=== PATIENT | male | born 1925 | race Caucasian/White ===

== ENCOUNTER 2016-06-26 06:55 | Inpatient (IN) | payer MEDICARE, OTHER ==
--- NOTE | 2016-06-26 08:01 | ED PDOC ---
HPI: SOB/CHF/COPD Time Seen by Provider: 06/26/16 07:10 Chief Complaint (Nursing): Shortness Of Breath Chief Complaint (Provider): shortness of breath, nausea History Per: Patient, Family, Media Sales Representative History/Exam Limitations: no limitations Onset/Duration Of Symptoms: Days (1) Current Symptoms Are (Timing): Intermittent Episodes Exacerbating Factor(s): Laying Flat, Coughing Severity: Moderate Associated Symptoms: Productive Cough, Dizziness, Light-headedness. denies: Heart Racing, Leg/Calf Pain, Ankle/Leg Swelling Similar Symptoms Previously: + Additional Complaint(s): 89yo male with multiple medical problems presents w son c/o SOB, nausea and generalized weakness/dizziness since yesterday. Per son patient requested to come to hospital for "not feeling well". Denies syncope, chest pain, fever, abdominal pain or bloody stools. Does state stools are "dark". States adherence to medications including "water pill", but hasnt taken insulin in 3 days because "theyre changing medication". Accuchecks normally 250 in morning per son, today 194 in ED. Past Medical History Reviewed: Historical Data, Nursing Documentation, Vital Signs Vital Signs: Last Vital Signs Temp 97.4 F L 06/27/16 12:43 Pulse 89 06/27/16 14:33 Resp 20 06/27/16 12:43 BP 103/60 06/27/16 13:29 Pulse Ox 93 L 06/27/16 14:33 - Medical History PMH: Benign Prostatic Hyperplasia, CAD, Cardia Arrhythmia (w/ defibrillator), CHF, Diabetes, HTN, Hypercholesterolemia, Hyperlipidemia, Hypothyroidism, Peripheral Edema, Chronic Kidney Disease Denies: HIV - Surgical History Surgical History: CABG - Family History Family History: States: Unknown Family Hx - Living Arrangements Living Arrangements: With Family - Social History Current smoker - smoking cessation education provided: No Alcohol: None - Home Medications Home Medications: Ambulatory Orders Medication Instructions Recorded Alfuzosin HCl [Uroxatral] 10 mg PO DAILY 06/26/16 Allopurinol [Zyloprim] 100 mg PO DAILY 06/26/16 Aspirin [Ecotrin] 81 mg PO DAILY 06/26/16 Dutasteride [Avodart] 0.5 mg PO DAILY 06/26/16 Ergocalciferol (Vitamin D2) 50,000 unit PO SAT 06/26/16 [Vitamin D2] Insulin Detemir [Levemir] 12 unit SC HS 06/26/16 Levothyroxine [Synthroid] 88 mcg PO DAILY 06/26/16 Metoprolol Succinate [Toprol XL] 100 mg PO DAILY 06/26/16 Multivitamin/Iron/Folic Acid 1 tab PO DAILY 06/26/16 [Centrum Complete Multivit Tab] Ranolazine [Ranexa] 500 mg PO Q12H 06/26/16 Repaglinide [Prandin] 4 mg PO TID 06/26/16 Rosuvastatin Calcium [Crestor] 20 mg PO DAILY 06/26/16 Sacubitril/Valsartan [Entresto 97 1 tab PO BID 06/26/16 mg-103 mg Tablet] Sevelamer Carbonate [Renvela] 800 mg PO ACLD 06/26/16 Sitagliptin Phos/Metformin HCl 1 tab PO BID 06/26/16 [Janumet 50-1,000 mg Tablet] Torsemide [Demadex] 10 mg PO DAILY 06/26/16 - Allergies Allergies/Adverse Reactions: Allergies Allergy/AdvReac Type Severity Reaction Status Date / Time No Known Allergies Allergy Unverified 03/14/14 18:48 Review of Systems ROS Statement: Except As Marked, All Systems Reviewed And Found Negative Constitutional: Positive for: Weakness, Malaise. Negative for: Fever, Chills Eyes: Negative for: Pain ENT: Negative for: Ear Discharge, Throat Pain, Throat Swelling Cardiovascular: Positive for: Orthopnea, Light Headedness. Negative for: Chest Pain, Palpitations Respiratory: Positive for: Cough, Shortness of Breath, SOB with Exertion. Negative for: Hemoptysis, Sputum, Wheezing Gastrointestinal: Positive for: Nausea. Negative for: Vomiting, Abdominal Pain Genitourinary Male: Negative for: Dysuria, Frequency, Scrotal Pain Musculoskeletal: Negative for: Neck Pain, Arm Pain, Back Pain, Leg Pain Skin: Negative for: Rash, Lesions, Jaundice Neurological: Positive for: Dizziness. Negative for: Weakness, Numbness, Confusion, Altered Mental Status, Headache Psych: Negative for: Anxiety Physical Exam - Reviewed Nursing Documentation Reviewed: Yes Vital Signs Reviewed: Yes - Physical Exam Appears: Positive for: Well, Non-toxic, No Acute Distress Head Exam: Positive for: ATRAUMATIC, NORMAL INSPECTION, NORMOCEPHALIC Skin: Positive for: Warm, Pallor (?). Negative for: Diaphoresis Eye Exam: Positive for: EOMI, Normal appearance, PERRL ENT: Positive for: Normal ENT Inspection Neck: Positive for: Normal, Painless ROM Cardiovascular/Chest: Positive for: Regular Rate, Rhythm, Other (midline scar healed) Respiratory: Positive for: Decreased Breath Sounds. Negative for: Wheezing, Respiratory Distress Pulses-Radial (L): 2+ Pulses-Radial (R): 2+ Gastrointestinal/Abdominal: Positive for: Bowel Sounds, Soft. Negative for: Tenderness Back: Positive for: Normal Inspection Extremity: Positive for: Normal ROM. Negative for: Pedal Edema, Swelling Neurologic/Psych: Positive for: Alert, controlled area checker II-XII, Oriented. Negative for: Motor/Sensory Deficits, Facial Droop - Laboratory Results Result Diagrams: 06/27/16 05:35 06/27/16 05:35 - ECG ECG: Positive for: Interpreted By Me ECG Rhythm: Positive for: Sinus Rhythm, ST/T Changes (lateral), Nonspecific Changes O2 Sat by Pulse Oximetry: 100 Pulse Ox Interpretation: Normal Medical Decision Making Medical Decision Making: bloodwork reveals elevated BNP and acute kidney injury w mild hyperkalemia since last available labs. 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 Lasix and kayexalate initiated. Pt admitted to Dr Blackwell as PMD [facility]. Dr Maryjane Cooper cardiology to consult. Disposition - Clinical Impression Clinical Impression: CHF exacerbation, Hyperkalemia, Acute kidney injury - Patient ED Disposition Is Patient to be Admitted: Yes Counseled Patient/Family Regarding: Studies Performed, Diagnosis - Disposition Disposition Time: 09:00 Condition: FAIR - Pt Status Changed To: Hospital Disposition Of: Inpatient - Admit Certification Admit to Inpatient:: After my assessment, the patient will require hospitalization for at least two midnights. This is because of the severity of symptoms shown, intensity of services needed, and/or the medical risk in this patient being treated as an outpatient. - POA Present On Arrival: Poor Glycemic Control
[2016-06-26 08:12] LABS: BILIRUBIN,TOTAL 0.6 mg/dl (0.2-1.3); CALCIUM 9.3 mg/dL (8.4-10.2); POTASSIUM 5.5 MMOL/L (3.6-5.0)
[2016-06-26 08:17] LABS: BASO % 0.2 % (0.0-2.0); EOS % 0.3 % (0.0-4.0); HEMATOCRIT 32.9 % (35.0-51.0); LYMPH # 1.1 K/uL (1.0-4.3); LYMPH % 9.8 % (20.0-40.0); MEAN CELL VOLUME 93.9 fl (80.0-94.0); MEAN CORPUSCULAR HEMOGLOBIN 30.5 pg (27.0-31.0); MEAN CORPUSCULAR HGB CONC 32.4 g/dL (33.0-37.0); MEAN PLATELET VOLUME 8.7 fl (7.2-11.7); MONO # 0.8 K/uL (0.0-0.8); MONO % 7.4 % (0.0-10.0); NEUT # 9.3 K/uL (1.8-7.0); NEUT % 82.3 % (50.0-75.0); NRBC % 0.1 % (0.0-0.0); PLATELET COUNT 200 K/uL (130-400); RED CELL DISTRIBUTION WIDTH 13.6 % (11.5-14.5); WHITE BLOOD COUNT 11.4 K/uL (4.8-10.8)
[2016-06-26 08:24] LABS: TROPONIN I 0.043 ng/mL (0.00-0.120)
[2016-06-26] MEDS ORDERED: Sod Polystyrene Sulf 15 gm/60 ml Oral Susp PO ONE (08:53)
[2016-06-26 09:27] LABS: NEUTROPHIL 82 % (42-75); TOTAL CELLS COUNTED 100
[2016-06-26] MEDS ORDERED: Sod Polystyrene Sulf 15 gm/60 ml Oral Susp ONE (10:16)
[2016-06-26 10:19] LABS: RBC URINE 1 /hpf (0-3); URINE BILIRUBIN NEGATIVE (NEGATIVE); URINE BLOOD NEGATIVE (NEGATIVE); URINE COLOR YELLOW (YELLOW); URINE GLUCOSE (UA) NEG (Normal); URINE KETONE NEGATIVE (NEGATIVE); URINE LEUKOCYTE ESTERASE NEG Leu/uL (Negative); URINE PROTEIN NEGATIVE (NEGATIVE); URINE UROBILINOGEN 0.2-1.0 mg/dL (0.2-1.0); WBC URINE < 1 /hpf (0-5)
--- NOTE | 2016-06-26 10:41 | RAD ---
HISTORY: SOB COMPARISON: Comparison is made to 03/14/2014 FINDINGS: LUNGS: Scattered reticular opacities are seen in the lungs. Enlargement of the right hilum is again noted. The right lung is smaller than the left. PLEURA: No significant pleural effusion identified, no pneumothorax apparent. CARDIOVASCULAR: Normal. OSSEOUS STRUCTURES: No significant abnormalities. VISUALIZED UPPER ABDOMEN: Normal. OTHER FINDINGS: The sided pacemaker is seen in place. IMPRESSION: Scattered small opacities in the lungs more prominent compared to the previous exam. Right hilum enlargement versus perihilar lesion again noted and appears larger compared to the previous exam. If clinically warranted further assessment by CT may be obtained. Otherwise no significant change.
[2016-06-26] MEDS ORDERED: Sevelamer Carb 0.8 gm/Packet PO SCH (11:15)
[2016-06-26] MEDS: Levothyroxine 88 MCG TAB PO SCH (13:28)
[2016-06-26] MEDS: Multivitamin With Minerals Tab PO SCH (13:29)
[2016-06-26] MEDS: Metoprolol Succinate 100 mg XL Tab PO SCH (13:30)
[2016-06-26] MEDS: VALSARTAN PO SCH (16:50)
[2016-06-26] MEDS: SACUBITRIL PO SCH (16:50)
--- NOTE | 2016-06-26 19:32 | CP.PCM.CON ---
History of Present Illness - History of Present Illness History of Present Illness: I was asked to see patient by DR. Blackwell and Felix Delaney APN Patient is a 89 year old male with PMH HTN, hypercholesterolemia, CAD s/p CABG, ischemic cardiomyopathy s/p AICD who presents with dyspnea. History was obtained from the patien's son and the patient. He has developed progressive dyspnea and orthopnea for the last few days. The patietn was brought in and found to be in acute on chronic systolic dysfunction, He has been given diuretic tehrapy. The patient has been noncompliant with lasix. Review of Systems - Constitutional Constitutional: absent: As Per HPI, Anorexia, Chills, Daytime Sleepiness, Excessive Sweating, Fatigue, Fever, Frequent Falls, Headache, Increased Appetite , Lethargy, Malaise, Night Sweats, Snoring, Sleep Apnea, Weight Gain, Weight Loss, Weakness, Other - EENT Eyes: absent: As Per HPI, Blind Spots, Blurred Vision, Change in Vision, Decreased Night Vision, Diplopia, Discharge, Dry Eye, Exophthalmos, Floaters, Irritation, Itchy Eyes, Loss of Peripheral Vision, Pain, Photophobia, Requires Corrective Lenses, Sees Flashes, Spots in Vision, Tunnel Vision, Other Visual Disturbances, Loss of Vision, Other Ears: absent: As Per HPI, Decreased Hearing, Ear Discharge, Ear Pain, Tinnitus, Abnormal Hearing, Disequilibrium, Dizziness, Other Nose/Mouth/Throat: absent: As Per HPI, Epistaxis, Nasal Congestion, Nasal Discharge, Nasal Obstruction, Nasal Trauma, Nose Pain, Post Nasal Drip, Sinus Pain, Sinus Pressure, Bleeding Gums, Change in Voice, Dental Pain, Dry Mouth, Dysphagia, Halitosis, Hoarsness, Lip Swelling, Mouth Lesions, Mouth Pain, Odynophagia, Sore Throat, Throat Swelling, Tongue Swelling, Facial Pain, Neck Pain, Neck Mass, Other - Cardiovascular Cardiovascular: Dyspnea, Pedal Edema - Respiratory Respiratory: Dyspnea - Gastrointestinal Gastrointestinal: absent: As Per HPI, Abdominal Pain, Belching, Bloating, Change in Bowel Habits, Change in Stool Character, Coffee Ground Emesis, Constipation, Cramping, Diarrhea, Dyspepsia, Dysphagia, Early Satiety, Excessive Flatus, Fecal Incontinence, Heartburn, Hematemesis, Hematochezia, Loose Stools, Melena, Nausea, Odynophagia, Temesmus, Vomiting, Other - Genitourinary Genitourinary: absent: As Per HPI, Change in Urinary Stream, Difficulty Urinating, Dysuria, Flank Pain, Hematuria, Pyuria, Nocturia, Urinary Incontinence, Urinary Frequency, Urinary Hesitance, Urinary Urgency, Voiding Freq/Small Amts, Freq UTI, Hx Renal/Bladder Calculi, Hx /Renal Surgery, Bladder Distension, Other - Musculoskeletal Musculoskeletal: absent: As Per HPI, Abnormal Gait, Arthralgias, Atrophy, Back Pain, Deformity, Joint Swelling, Limited Range of Motion, Loss of Height, Muscle Cramps, Muscle Weakness, Myalgias, Neck Pain, Numbness, Radiating Pain into Limb, Stiffness, Tingling, Other - Integumentary Integumentary: absent: As Per HPI, Acne, Alopecia, Bleeding Lesions, Change in Hair, Change in Nails, Change in Pigmentation, Changing Lesions, Dry Skin, Erythema, Furuncle, Hirsutism, Lesions, New Lesions, Non-Healing Lesions, Photosensitivity, Pruritus, Rash, Skin Pain, Skin Ulcer, Sores, Striae, Swelling , Unusual Bruising, Wounds, Jaundice, Other - Neurological Neurological: absent: As Per HPI, Abnormal Gait, Abnormal Hearing, Abnormal Movements, Abnormal Speech, Behavioral Changes, Burning Sensations, Confusion, Convulsions, Disequilibrium, Dizziness, Numbness, Focal Weakness, Frequent Falls , Headaches, Lack of Coordination, Loss of Vision, Memory Loss, Paresthesias, Radicular Pain, Restless Legs, Sensory Deficit, Syncope, Tingling, Tremor, Vertigo, Weakness, Other Visual Disturbances, Other - Psychiatric Psychiatric: absent: As Per HPI, Abnormal Sleep Pattern, Anhedonia, Anxiety, Auditory Hallucinations, Behavioral Changes, Change in Appetite, Change in Libido, Confusion, Depression, Difficulty Concentrating, Hallucinations, Homicidal Ideation, Hopelessness, Irritability, Memory Loss, Mood Swings, Panic Attacks, Paranoia, Suicidal Ideation, Visual Hallucinations, Tactile Hallucinations, Other - Endocrine Endocrine: absent: As Per HPI, Change in Body Appearance, Change in Libido, Cold Intolorance, Deepening of Voice, Excessive Sweating, Fatigue, Flushing, Heat Intolorance, Increase in Ring/Shoe/Hat Size, Palpitations, Polydipsia, Polyphagia, Polyuria, Other - Hematologic/Lymphatic Hematologic: absent: As Per HPI, Easy Bleeding, Easy Bruising, Lymphadenopathy, Other Past Patient History - Infectious Disease Hx of Infectious Diseases: None - Tetanus Immunizations Tetanus Immunization: Unknown - Past Medical History & Family History Past Medical History?: Yes - Past Social History Smoking Status: Never Smoked - CARDIAC Hx Cardiac Disorders: Yes (s/p CABG, defibrillator in, HTN high cholesterol) Hx Cardia Arrhythmia: Yes Hx Congestive Heart Failure: Yes Hx Hypertension: Yes Hx Hypotension: Yes - PULMONARY Hx Respiratory Disorders: No Hx Asthma: No Hx Bronchitis: No Hx Chronic Obstructive Pulmonary Disease (COPD): No Hx Emphysema: No Hx Lung Cancer: No Hx Pneumonia: Yes Hx Pulmonary Edema: No Hx Pulmonary Embolism: No Hx Respiratory Aspiration: No Hx Respiratory Tract Infection: No Hx Sleep Apnea: No Hx Tuberculosis: No - NEUROLOGICAL Hx Neurological Disorder: No - HEENT Hx HEENT Problems: No - RENAL Hx Chronic Kidney Disease: Yes - ENDOCRINE/METABOLIC Hx Endocrine Disorders: Yes (DM 2) - HEMATOLOGICAL/ONCOLOGICAL Hx Human Immunodeficiency Virus (HIV): No - MUSCULOSKELETAL/RHEUMATOLOGICAL Hx Falls: Yes - GASTROINTESTINAL Hx Gastrointestinal Disorders: No - GENITOURINARY/GYNECOLOGICAL Hx Genitourinary Disorders: Yes (Prostatic hyperplasia) - PSYCHIATRIC Hx Substance Use: No - SURGICAL HISTORY Hx Coronary Artery Bypass Graft: Yes - ANESTHESIA Hx Anesthesia: Yes Hx Anesthesia Reactions: No Meds Allergies/Adverse Reactions: Allergies Allergy/AdvReac Type Severity Reaction Status Date / Time No Known Allergies Allergy Unverified 03/14/14 18:48 - Medications Medications: Current Medications Allopurinol (Zyloprim) 100 mg PO DAILY COUNTS INCLUDE 234 BEDS AT THE [facility] Last Admin: 06/26/16 13:31 Dose: 100 mg Aspirin (Ecotrin) 81 mg PO DAILY COUNTS INCLUDE 234 BEDS AT THE [facility] Last Admin: 06/26/16 13:29 Dose: 81 mg Atorvastatin Calcium (Lipitor) 40 mg PO DAILY COUNTS INCLUDE 234 BEDS AT THE [facility] Last Admin: 06/26/16 13:30 Dose: 40 mg Ergocalciferol (Drisdol 50,000 Intl Units Cap) 1 cap PO SAT COUNTS INCLUDE 234 BEDS AT THE [facility] Home Med (Alfuzosin Hcl [Uroxatral]) 10 mg PO DAILY COUNTS INCLUDE 234 BEDS AT THE [facility] Last Admin: 06/26/16 16:56 Dose: 10 mg Home Med (Dutasteride [Avodart]) 0.5 mg PO DAILY COUNTS INCLUDE 234 BEDS AT THE [facility] Last Admin: 06/26/16 16:47 Dose: 0.5 mg Home Med (Ranolazine [Ranexa]) 500 mg PO Q12 COUNTS INCLUDE 234 BEDS AT THE [facility] Last Admin: 06/26/16 16:49 Dose: 500 mg Home Med (Sacubitril/Valsartan [Entresto 97 Mg-103 Mg Tablet]) 1 tab PO BID COUNTS INCLUDE 234 BEDS AT THE [facility] Last Admin: 06/26/16 16:50 Dose: 1 tab Insulin Detemir (Levemir) 12 units SC [facility] Levothyroxine Sodium (Synthroid) 88 mcg PO DAILY@0630 COUNTS INCLUDE 234 BEDS AT THE [facility] Last Admin: 06/26/16 13:28 Dose: 88 mcg Metformin HCl (Glucophage) 1,000 mg PO BID COUNTS INCLUDE 234 BEDS AT THE [facility] Last Admin: 06/26/16 16:48 Dose: 1,000 mg Metoprolol Succinate (Toprol Xl) 100 mg PO DAILY COUNTS INCLUDE 234 BEDS AT THE [facility] Last Admin: 06/26/16 13:30 Dose: 100 mg Multivitamins/Minerals (Therapeutic-M Tab) 1 tab PO DAILY COUNTS INCLUDE 234 BEDS AT THE [facility] Last Admin: 06/26/16 13:29 Dose: 1 tab Repaglinide (Prandin) 4 mg PO TID COUNTS INCLUDE 234 BEDS AT THE [facility] Last Admin: 06/26/16 16:51 Dose: 4 mg Sevelamer Carbonate (Renvela) 0.8 gm PO ACLD COUNTS INCLUDE 234 BEDS AT THE [facility] Sitagliptin Phosphate (Januvia) 50 mg PO BID COUNTS INCLUDE 234 BEDS AT THE [facility] Last Admin: 06/26/16 16:49 Dose: 50 mg Torsemide (Demadex) 10 mg PO DAILY COUNTS INCLUDE 234 BEDS AT THE [facility] Last Admin: 06/26/16 13:29 Dose: 10 mg Physical Exam - Constitutional Appears: Non-toxic - Head Exam Head Exam: NORMAL INSPECTION - Eye Exam Eye Exam: Normal appearance - ENT Exam ENT Exam: Mucous Membranes Moist - Neck Exam Neck exam: Positive for: Full Rom - Respiratory Exam Respiratory Exam: Decreased Breath Sounds - Cardiovascular Exam Cardiovascular Exam: REGULAR RHYTHM - GI/Abdominal Exam GI & Abdominal Exam: Normal Bowel Sounds - Rectal Exam Rectal Exam: Deferred - Extremities Exam Extremities exam: Positive for: pedal edema - Back Exam Back exam: NORMAL INSPECTION - Neurological Exam Neurological exam: Alert, Oriented x3 - Psychiatric Exam Psychiatric exam: Normal Affect - Skin Skin Exam: Normal Color Results - Vital Signs Recent Vital Signs: Last Vital Signs Temp 97.6 F 06/26/16 15:51 Pulse 77 06/26/16 17:43 Resp 16 06/26/16 17:43 BP 110/60 06/26/16 15:51 Pulse Ox 100 06/26/16 17:43 - Labs Result Diagrams: 06/26/16 07:46 06/26/16 07:46 Labs: Laboratory Results - last 24 hr 06/26/16 06/26/16 10:00 17:24 Troponin I 0.0510 Urine Color Yellow Urine Clarity Clear Urine pH 5.0 Ur Specific [place] 1.014 Urine Protein Negative Urine Glucose (UA) Neg Urine Ketones Negative Urine Blood Negative Urine Nitrate Negative Urine Bilirubin Negative Urine Urobilinogen 0.2-1.0 Ur Leukocyte Esterase Neg Urine RBC (Auto) 1 Urine Microscopic WBC < 1 - EKG Data EKG Interpreted by: Myself Assessment & Plan (1) Acute on chronic systolic and diastolic heart failure, NYHA class 2 Assessment and Plan: will need continued diuretic tehrapy. check echocardiogram to assess LV function. Status: Acute (2) CAD (coronary artery disease) Assessment and Plan: no current angina Status: Acute (3) DM2 (diabetes mellitus, type 2) Assessment and Plan: check blood glucose levels Status: Acute
[2016-06-26] MEDS: Insulin Detemir 100 Units/ml Inj SC SCH (22:21)
[2016-06-27] MEDS: Levothyroxine 88 MCG TAB PO SCH (05:44)
--- NOTE | 2016-06-27 07:24 | CP.PCM.HP ---
History of Present Illness - History of Present Illness History of Present Illness: pt admitted for worsening chf and dyspnea on exertion, bun/cr elevated but improved w/ hydration. pt states had dyspnea yesterday but improving today. no cp. no f/c, n/v/d. bw noted. echo pending report. cardio appriciated. Present on Admission - Present on Admission Any Indicators Present on Admission: Yes History of Uncontrolled Diabetes: Yes Review of Systems - Cardiovascular Cardiovascular: As Per HPI, Dyspnea on Exertion Past Patient History - Infectious Disease Hx of Infectious Diseases: None - Tetanus Immunizations Tetanus Immunization: Unknown - Past Medical History & Family History Past Medical History?: Yes - Past Social History Smoking Status: Never Smoked - CARDIAC Hx Cardiac Disorders: Yes (s/p CABG, defibrillator in, HTN high cholesterol) Hx Cardia Arrhythmia: Yes Hx Congestive Heart Failure: Yes Hx Hypertension: Yes Hx Hypotension: Yes - PULMONARY Hx Respiratory Disorders: No Hx Asthma: No Hx Bronchitis: No Hx Chronic Obstructive Pulmonary Disease (COPD): No Hx Emphysema: No Hx Lung Cancer: No Hx Pneumonia: Yes Hx Pulmonary Edema: No Hx Pulmonary Embolism: No Hx Respiratory Aspiration: No Hx Respiratory Tract Infection: No Hx Sleep Apnea: No Hx Tuberculosis: No - NEUROLOGICAL Hx Neurological Disorder: No - HEENT Hx HEENT Problems: No - RENAL Hx Chronic Kidney Disease: Yes - ENDOCRINE/METABOLIC Hx Endocrine Disorders: Yes (DM 2) - HEMATOLOGICAL/ONCOLOGICAL Hx Human Immunodeficiency Virus (HIV): No - MUSCULOSKELETAL/RHEUMATOLOGICAL Hx Falls: Yes - GASTROINTESTINAL Hx Gastrointestinal Disorders: No - GENITOURINARY/GYNECOLOGICAL Hx Genitourinary Disorders: Yes (Prostatic hyperplasia) - PSYCHIATRIC Hx Substance Use: No - SURGICAL HISTORY Hx Coronary Artery Bypass Graft: Yes - ANESTHESIA Hx Anesthesia: Yes Hx Anesthesia Reactions: No Meds Allergies/Adverse Reactions: Allergies Allergy/AdvReac Type Severity Reaction Status Date / Time No Known Allergies Allergy Unverified 03/14/14 18:48 Physical Exam - Constitutional Appears: Well, Non-toxic, No Acute Distress - Head Exam Head Exam: ATRAUMATIC, NORMAL INSPECTION, NORMOCEPHALIC - Eye Exam Eye Exam: EOMI, Normal appearance, PERRL Pupil Exam: NORMAL ACCOMODATION, PERRL - ENT Exam ENT Exam: Mucous Membranes Moist, Normal Exam - Neck Exam Neck exam: Positive for: Normal Inspection - Respiratory Exam Respiratory Exam: Clear to Auscultation Bilateral, NORMAL BREATHING PATTERN - Cardiovascular Exam Cardiovascular Exam: REGULAR RHYTHM, RRR, +S1, +S2 - GI/Abdominal Exam GI & Abdominal Exam: Normal Bowel Sounds, Soft. absent: Tenderness - Extremities Exam Extremities exam: Positive for: full ROM, normal capillary refill, normal inspection, pedal pulses present - Back Exam Back exam: NORMAL INSPECTION - Neurological Exam Neurological exam: Alert, CN II-XII Intact, Normal Gait, Oriented x3, Reflexes Normal - Psychiatric Exam Psychiatric exam: Normal Affect, Normal Mood - Skin Skin Exam: Dry, Intact, Normal Color, Warm Results - Vital Signs Recent Vital Signs: Last Vital Signs Temp 97.8 F 06/27/16 04:58 Pulse 76 06/27/16 04:58 Resp 18 06/27/16 04:58 BP 100/56 L 06/27/16 04:58 Pulse Ox 99 06/27/16 04:58 - Labs Result Diagrams: 06/27/16 05:35 06/27/16 05:35 Labs: Laboratory Results - last 24 hr 06/26/16 06/26/16 06/26/16 10:00 17:24 21:14 POC Glucose (mg/dL) 123 H Troponin I 0.0510 Urine Color Yellow Urine Clarity Clear Urine pH 5.0 Ur Specific [place] 1.014 Urine Protein Negative Urine Glucose (UA) Neg Urine Ketones Negative Urine Blood Negative Urine Nitrate Negative Urine Bilirubin Negative Urine Urobilinogen 0.2-1.0 Ur Leukocyte Esterase Neg Urine RBC (Auto) 1 Urine Microscopic WBC < 1 06/27/16 06/27/16 04:28 06:20 POC Glucose (mg/dL) 59 L 65 Troponin I Urine Color Urine Clarity Urine pH Ur Specific [place] Urine Protein Urine Glucose (UA) Urine Ketones Urine Blood Urine Nitrate Urine Bilirubin Urine Urobilinogen Ur Leukocyte Esterase Urine RBC (Auto) Urine Microscopic WBC Assessment & Plan (1) Acute on chronic systolic and diastolic heart failure, NYHA class 2 Assessment and Plan: cardio, gentle diuresis echo tele ?? sat, pt/ot Status: Acute (2) DM2 (diabetes mellitus, type 2) Assessment and Plan: riss, fsbg, home meds Status: Acute (3) DVT prophylaxis Assessment and Plan: scd and aehose, lovenox Status: Acute Decision To Admit - Pt Status Changed To: Hospital Disposition Of: Inpatient - Admit Certification Admit to Inpatient:: After my assessment, the patient will require hospitalization for at least two midnights. This is because of the severity of symptoms shown, intensity of services needed, and/or the medical risk in this patient being treated as an outpatient. - . Bed Request Type: Telemetry Admitting Physician: Haely Blackwell
[2016-06-27 07:30] LABS: BASO % 0.2 % (0.0-2.0); EOS # 0.1 K/uL (0.0-0.7); EOS % 0.5 % (0.0-4.0); LYMPH % 15.7 % (20.0-40.0); MEAN CELL VOLUME 93.9 fl (80.0-94.0); MEAN PLATELET VOLUME 9.2 fl (7.2-11.7); MONO # 1.7 K/uL (0.0-0.8); MONO % 13.6 % (0.0-10.0); NEUT # 8.9 K/uL (1.8-7.0); NRBC % 0.1 % (0.0-0.0); RED CELL DISTRIBUTION WIDTH 13.5 % (11.5-14.5); WHITE BLOOD COUNT 12.8 K/uL (4.8-10.8)
[2016-06-27 07:37] LABS: BILIRUBIN,TOTAL 0.7 mg/dl (0.2-1.3); CALCIUM 9.3 mg/dL (8.4-10.2); POTASSIUM 4.5 MMOL/L (3.6-5.0); TOTAL PROTEIN 7.6 G/DL (6.3-8.2)
[2016-06-27 07:40] LABS: TROPONIN I 0.059 ng/mL (0.00-0.120)
--- NOTE | 2016-06-27 08:44 | CARD ---
APPROVED REPORT EKG Measurement Heart [id number] <Conclusion> Sinus rhythm with 1st degree AV block ST & T wave abnormality, consider lateral ischemia Prolonged QT Abnormal ECG
[2016-06-27] MEDS: VALSARTAN PO SCH ×3 (09:02→17:07)
[2016-06-27] MEDS: SACUBITRIL PO SCH ×3 (09:02→17:07)
[2016-06-27] MEDS: Metoprolol Succinate 100 mg XL Tab PO SCH (09:03)
[2016-06-27] MEDS: Multivitamin With Minerals Tab PO SCH (09:03)
[2016-06-27] MEDS: Sevelamer Carb 0.8 gm/Packet PO SCH ×2 (12:00→17:04)
--- NOTE | 2016-06-27 12:25 | CARD ---
APPROVED REPORT EXAM: Two-dimensional and M-mode echocardiogram with Doppler and color Doppler. Other Information Quality : GoodRhythm : Pacemaker INDICATION Congestive Heart Failure Surgery/Intervention Pacemaker: CABD DIMENSIONS IVSd1.04 (0.7-1.1cm)LVDd5.77 (3.9-5.9cm) LVOT Diameter2.11 (1.8-2.4cm)PWd0.89 (0.7-1.1cm) IVSs1.34 (0.8-1.2cm)LVDs4.51 (2.5-4.0cm) FS (%) 21.8 %PWs1.31 (0.8-1.2cm) M-Mode DIMENSIONS Left Atrium (MM)3.88 (2.5-4.0cm)IVSd0.52 (0.7-1.1cm) Aortic Root3.14 (2.2-3.7cm)LVDd7.13 (4.0-5.6cm) Aortic Cusp Exc.0.77 (1.5-2.0cm)PWd0.87 (0.7-1.1cm) IVSs0.73 cmFS (%) 12 % LVDs6.29 (2.0-3.8cm)PWs1.19 cm Aortic Valve AoV Peak Jqoexwiz736.2cm/sAoV VTI65.6cmAO Peak GR.33mmHg LVOT Peak Udxnvcld05.7cm/sLVOT VTI15.96cmAO Mean GR.20mmHg SHANTELLE (VMAX)0.42nt0MRW (VTI)0.46cm2 Mitral Valve MV E Kjavjbea95.4cm/sMV DECEL [id number] A Zypsotbe96.4cm/s MV BGY12erL/A ratio1.0MVA (PHT)2.98cm2 TDI E/Lateral E'0.0E/Medial E'0.0 Tricuspid Valve TR Peak Ettevtyr138ap/sRAP HCSNGZOV42axHcCC Peak Gr.25mmHg [id number] LEFT VENTRICLE The left ventricle is normal size. There is normal left ventricular wall thickness. The left ventricular function is normal. The left ventricular ejection fraction is within the normal range. The Ejection Fraction is 55-60%. There is normal LV segmental wall motion. The left ventricular diastolic function is normal. No left ventricle thrombus noted on this study. There is no mass noted in the left ventricle. RIGHT VENTRICLE The right ventricle is normal size. There is normal right ventricular wall thickness. The right ventricular systolic function is normal. ATRIA The left atrium size is normal. The right atrium size is normal. The interatrial septum is intact with no evidence for an atrial septal defect. AORTIC VALVE The aortic valve is moderately to severely calcified. No aortic regurgitation is present. There is moderate to severe valvular aortic stenosis. Calculated aortic valve area with maximum pressure gradient of 33 mmHg and mean pressure gradient of 20 mmHg. There is no aortic valvular vegetation. MITRAL VALVE The mitral valve is normal in structure and function. There is no evidence of mitral valve prolapse. There is no mitral valve stenosis. There is no mitral valve regurgitation noted. TRICUSPID VALVE The tricuspid valve is normal in structure and function. There is no tricuspid valve regurgitation noted. There is no tricuspid valve prolapse or vegetation. There is no tricuspid valve stenosis. PULMONIC VALVE The pulmonary valve is normal in structure and function. There is no pulmonic valvular regurgitation. There is no pulmonic valvular stenosis. GREAT VESSELS The aortic root is normal in size. The IVC is normal in size and collapses >50% with inspiration. PERICARDIAL EFFUSION The pericardium appears normal. There is no pleural effusion. <Conclusion> The left ventricle is normal size. The left ventricular function is normal. The left ventricular ejection fraction is within the normal range. The Ejection Fraction is 55-60%. The aortic valve is moderately to severely calcified. There is moderate to severe valvular aortic stenosis. Calculated aortic valve area with maximum pressure gradient of 33 mmHg and mean pressure gradient of 20 mmHg.
--- NOTE | 2016-06-27 18:42 | CP.PCM.PN ---
Subjective - Date & Time of Evaluation Date of Evaluation: 06/27/16 Time of Evaluation: 17:55 - Subjective Subjective: less dyspnea Objective - Vital Signs/Intake and Output Vital Signs (last 24 hours): Temp Pulse Resp BP Pulse Ox 97.7 F 75 18 90/50 L 98 06/27/16 16:13 06/27/16 16:13 06/27/16 16:13 06/27/16 16:13 06/27/16 16:13 - Medications Medications: Current Medications Allopurinol (Zyloprim) 100 mg PO DAILY [facility] Last Admin: 06/27/16 09:03 Dose: 100 mg Aspirin (Ecotrin) 81 mg PO DAILY [facility] Last Admin: 06/27/16 09:00 Dose: 81 mg Atorvastatin Calcium (Lipitor) 40 mg PO DAILY [facility] Last Admin: 06/27/16 09:00 Dose: 40 mg Enoxaparin Sodium (Lovenox) 30 mg SC DAILY [facility] PRN Reason: Protocol Ergocalciferol (Drisdol 50,000 Intl Units Cap) 1 cap PO SAT [facility] Furosemide (Lasix) 40 mg IVP DAILY [facility] Last Admin: 06/27/16 13:29 Dose: Not Given Home Med (Alfuzosin Hcl [Uroxatral]) 10 mg PO DAILY [facility] Last Admin: 06/27/16 09:02 Dose: 10 mg Home Med (Dutasteride [Avodart]) 0.5 mg PO DAILY [facility] Last Admin: 06/27/16 09:02 Dose: 0.5 mg Home Med (Ranolazine [Ranexa]) 500 mg PO Q12 [facility] Last Admin: 06/27/16 09:01 Dose: 500 mg Home Med (Sacubitril/Valsartan [Entresto 97 Mg-103 Mg Tablet]) 1 tab PO BID [facility] Last Admin: 06/27/16 17:07 Dose: Not Given Insulin Detemir (Levemir) 12 units SC HS [facility] Last Admin: 06/26/16 22:21 Dose: Not Given Levothyroxine Sodium (Synthroid) 88 mcg PO DAILY@0630 [facility] Last Admin: 06/27/16 05:44 Dose: 88 mcg Metformin HCl (Glucophage) 1,000 mg PO BID [facility] Last Admin: 06/27/16 17:05 Dose: Not Given Metoprolol Succinate (Toprol Xl) 100 mg PO DAILY [facility] Last Admin: 06/27/16 09:03 Dose: Not Given Multivitamins/Minerals (Therapeutic-M Tab) 1 tab PO DAILY [facility] Last Admin: 06/27/16 09:03 Dose: 1 tab Repaglinide (Prandin) 4 mg PO TID [facility] Last Admin: 06/27/16 17:05 Dose: Not Given Sevelamer Carbonate (Renvela) 0.8 gm PO 1130,1700 [facility] Last Admin: 06/27/16 17:04 Dose: 0.8 gm Sitagliptin Phosphate (Januvia) 50 mg PO BID [facility] Last Admin: 06/27/16 17:05 Dose: Not Given - Labs Labs: 06/27/16 05:35 06/27/16 05:35 - Constitutional Appears: Non-toxic - Head Exam Head Exam: NORMAL INSPECTION - Eye Exam Eye Exam: Normal appearance - ENT Exam ENT Exam: Mucous Membranes Moist - Neck Exam Neck Exam: Full ROM - Respiratory Exam Respiratory Exam: Decreased Breath Sounds - Cardiovascular Exam Cardiovascular Exam: REGULAR RHYTHM - GI/Abdominal Exam GI & Abdominal Exam: Normal Bowel Sounds - Rectal Exam Rectal Exam: Deferred - Extremities Exam Extremities Exam: absent: Pedal Edema - Back Exam Back Exam: NORMAL INSPECTION - Neurological Exam Neurological Exam: Alert - Psychiatric Exam Psychiatric exam: Normal Affect - Skin Skin Exam: Normal Color Assessment and Plan (1) Acute on chronic systolic and diastolic heart failure, NYHA class 2 Assessment & Plan: improved. would decrease diuresis. patient appears to have fixed outflow tract obstruction, calcified aortic valve. 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 Status: Acute (2) CAD (coronary artery disease) Status: Acute (3) DM2 (diabetes mellitus, type 2) Status: Acute
[2016-06-27] MEDS: Insulin Detemir 100 Units/ml Inj SC SCH (22:55)
[2016-06-28] MEDS: Levothyroxine 88 MCG TAB PO SCH (07:21)
[2016-06-28 08:05] LABS: HEMATOCRIT 30.7 % (35.0-51.0); MEAN CORPUSCULAR HEMOGLOBIN 31.6 pg (27.0-31.0); MEAN CORPUSCULAR HGB CONC 34.4 g/dL (33.0-37.0); RED CELL DISTRIBUTION WIDTH 13.6 % (11.5-14.5); WHITE BLOOD COUNT 9.7 K/uL (4.8-10.8)
[2016-06-28 08:13] LABS: CALCIUM 8.8 mg/dL (8.4-10.2)
[2016-06-28] MEDS: Ergocalciferol 50,000 Intl Units Cap PO SCH (09:50)
[2016-06-28] MEDS: Multivitamin With Minerals Tab PO SCH (09:52)
[2016-06-28] MEDS: Enoxaparin 30 mg Syringe SC SCH (10:23)
[2016-06-28] MEDS: VALSARTAN PO SCH ×2 (10:26→17:07)
[2016-06-28] MEDS: Metoprolol Succinate 100 mg XL Tab PO SCH (10:26)
[2016-06-28] MEDS: SACUBITRIL PO SCH ×2 (10:26→17:07)
--- NOTE | 2016-06-28 11:35 | CP.PCM.PN ---
Subjective - Date & Time of Evaluation Date of Evaluation: 06/28/16 Time of Evaluation: 11:31 - Subjective Subjective: pt comfortable inchair, no dyspnea/distress/cp. no f/c, n/v/d. bnw noted. slightlylow na. d/c care w/ pt and son . pt offered/refused tcu. son ok w/ taking pt home after repeat bw. cardio cleared pt. Objective - Vital Signs/Intake and Output Vital Signs (last 24 hours): Temp Pulse Resp BP Pulse Ox 98.2 F 84 18 94/52 L 98 06/28/16 08:00 06/28/16 08:00 06/28/16 08:00 06/28/16 10:22 06/28/16 08:00 - Medications Medications: Current Medications Allopurinol (Zyloprim) 100 mg PO DAILY [facility] Last Admin: 06/28/16 09:53 Dose: 100 mg Aspirin (Ecotrin) 81 mg PO DAILY [facility] Last Admin: 06/28/16 09:51 Dose: 81 mg Atorvastatin Calcium (Lipitor) 40 mg PO DAILY [facility] Last Admin: 06/28/16 09:50 Dose: 40 mg Enoxaparin Sodium (Lovenox) 30 mg SC DAILY [facility] PRN Reason: Protocol Last Admin: 06/28/16 10:23 Dose: 30 mg Ergocalciferol (Drisdol 50,000 Intl Units Cap) 1 cap PO SAT [facility] Last Admin: 06/28/16 09:50 Dose: 1 cap Furosemide (Lasix) 20 mg IVP DAILY [facility] Last Admin: 06/28/16 10:22 Dose: Not Given Home Med (Alfuzosin Hcl [Uroxatral]) 10 mg PO DAILY [facility] Last Admin: 06/28/16 09:52 Dose: 10 mg Home Med (Dutasteride [Avodart]) 0.5 mg PO DAILY [facility] Last Admin: 06/28/16 09:50 Dose: 0.5 mg Home Med (Ranolazine [Ranexa]) 500 mg PO Q12 [facility] Last Admin: 06/28/16 09:51 Dose: 500 mg Home Med (Sacubitril/Valsartan [Entresto 97 Mg-103 Mg Tablet]) 1 tab PO BID [facility] Last Admin: 06/28/16 10:26 Dose: Not Given Insulin Detemir (Levemir) 12 units SC HS [facility] Last Admin: 06/27/16 22:55 Dose: 12 unit Levothyroxine Sodium (Synthroid) 88 mcg PO DAILY@0630 [facility] Last Admin: 06/28/16 07:21 Dose: 88 mcg Metformin HCl (Glucophage) 1,000 mg PO BID [facility] Last Admin: 06/28/16 09:50 Dose: Not Given Metoprolol Succinate (Toprol Xl) 100 mg PO DAILY [facility] Last Admin: 06/28/16 10:26 Dose: Not Given Multivitamins/Minerals (Therapeutic-M Tab) 1 tab PO DAILY [facility] Last Admin: 06/28/16 09:52 Dose: 1 tab Repaglinide (Prandin) 4 mg PO TID [facility] Last Admin: 06/28/16 09:52 Dose: Not Given Sevelamer Carbonate (Renvela) 0.8 gm PO 1130,1700 [facility] Last Admin: 06/27/16 17:04 Dose: 0.8 gm Sitagliptin Phosphate (Januvia) 50 mg PO BID [facility] Last Admin: 06/28/16 09:51 Dose: Not Given - Labs Labs: 06/28/16 05:30 06/28/16 05:30 - Constitutional Appears: Well, Non-toxic, No Acute Distress - Head Exam Head Exam: ATRAUMATIC, NORMAL INSPECTION, NORMOCEPHALIC - Eye Exam Eye Exam: EOMI, Normal appearance, PERRL Pupil Exam: NORMAL ACCOMODATION, PERRL - ENT Exam ENT Exam: Mucous Membranes Moist, Normal Exam - Neck Exam Neck Exam: Full ROM, Normal Inspection. absent: Lymphadenopathy - Respiratory Exam Respiratory Exam: Clear to Ausculation Bilateral, NORMAL BREATHING PATTERN - Cardiovascular Exam Cardiovascular Exam: REGULAR RHYTHM, RRR, +S1, +S2. absent: Murmur - GI/Abdominal Exam GI & Abdominal Exam: Soft, Normal Bowel Sounds. absent: Tenderness - Rectal Exam Rectal Exam: NORMAL INSPECTION - Extremities Exam Extremities Exam: Full ROM, Normal Capillary Refill, Normal Inspection. absent : Joint Swelling, Pedal Edema - Back Exam Back Exam: NORMAL INSPECTION - Neurological Exam Neurological Exam: Alert, Awake, CN II-XII Intact, Normal Gait, Oriented x3 - Psychiatric Exam Psychiatric exam: Normal Affect, Normal Mood - Skin Skin Exam: Dry, Intact, Normal Color, Warm Assessment and Plan (1) Acute on chronic systolic and diastolic heart failure, NYHA class 2 Status: Acute (2) DM2 (diabetes mellitus, type 2) Status: Acute (3) DVT prophylaxis Status: Acute - Assessment and Plan (Free Text) Assessment: (1) Acute on chronic systolic and diastolic heart failure, NYHA class 2 Assessment and Plan: cardio, gentle diuresis echo tele ?? sat, pt/ot-pt refused tcu cleared by cardio Status: Acute (2) DM2 (diabetes mellitus, type 2) Assessment and Plan: riss, fsbg, home meds Status: Acute (3) DVT prophylaxis Assessment and Plan: scd and aehose, lovenox Status: Acute [id number] r/t lasix-repeat 1600 and dc after
[2016-06-28] MEDS: Sevelamer Carb 0.8 gm/Packet PO SCH ×2 (12:00→17:04)
[2016-06-28 17:10] LABS: BLOOD UREA NITROGEN 50 mg/dl (9-20); CALCIUM 8.5 mg/dL (8.4-10.2); CARBON DIOXIDE 27 mmol/L (22-30); CHLORIDE 88 mmol/L (98-107); GFR AFRICAN-AMERICAN > 60; GLUCOSE,RANDOM 171 mg/dL (75-110); SODIUM 121 mmol/l (132-148)
[2016-06-28 17:13] LABS: POTASSIUM 5.3 MMOL/L (3.6-5.0)
[2016-06-28] MEDS: Insulin Detemir 100 Units/ml Inj SC SCH (21:57)
[2016-06-28] MEDS: Sodium Chloride 0.9% 500 ML IV SCH (21:58)
[2016-06-29] MEDS: Levothyroxine 88 MCG TAB PO SCH (06:33)
[2016-06-29 07:01] LABS: BASO % 0.1 % (0.0-2.0); EOS % 0.1 % (0.0-4.0); HEMATOCRIT 31.1 % (35.0-51.0); LYMPH # 1.1 K/uL (1.0-4.3); LYMPH % 8.5 % (20.0-40.0); MEAN CELL VOLUME 92.9 fl (80.0-94.0); MEAN CORPUSCULAR HGB CONC 33.3 g/dL (33.0-37.0); MONO # 1.5 K/uL (0.0-0.8); MONO % 11.6 % (0.0-10.0); NEUT # 10.2 K/uL (1.8-7.0); NEUT % 79.7 % (50.0-75.0); NRBC % 0.1 % (0.0-0.0); PLATELET COUNT 192 K/uL (130-400); WHITE BLOOD COUNT 12.8 K/uL (4.8-10.8)
[2016-06-29 07:24] LABS: ALKALINE PHOSPHATASE 86 U/L (38-126); ALT/SGPT 30 U/L (21-72); AST/SGOT 32 U/L (17-59); BLOOD UREA NITROGEN 44 mg/dl (9-20); CALCIUM 8.9 mg/dL (8.4-10.2); CARBON DIOXIDE 24 mmol/L (22-30); CHLORIDE 91 mmol/L (98-107); GFR AFRICAN-AMERICAN > 60; GLUCOSE,RANDOM 112 mg/dL (75-110); POTASSIUM 5.3 MMOL/L (3.6-5.0); SODIUM 126 mmol/l (132-148); TOTAL PROTEIN 7.3 G/DL (6.3-8.2)
[2016-06-29] MEDS: Metoprolol Succinate 100 mg XL Tab PO SCH (08:26)
[2016-06-29] MEDS: Enoxaparin 30 mg Syringe SC SCH (08:29)
[2016-06-29] MEDS: Multivitamin With Minerals Tab PO SCH (08:29)
[2016-06-29] MEDS: SACUBITRIL PO SCH ×2 (08:33→16:25)
[2016-06-29] MEDS: VALSARTAN PO SCH ×2 (08:33→16:25)
--- NOTE | 2016-06-29 09:27 | CP.PCM.PN ---
Subjective - Date & Time of Evaluation Date of Evaluation: 06/29/16 Time of Evaluation: 09:27 - Subjective Subjective: dictated note no distress c/o left knee OA/pain bw noted Objective - Vital Signs/Intake and Output Vital Signs (last 24 hours): Temp Pulse Resp BP Pulse Ox 98.1 F 107 H 18 106/63 99 06/29/16 07:42 06/29/16 08:26 06/29/16 07:42 06/29/16 08:44 06/29/16 07:42 - Medications Medications: Current Medications Acetaminophen (Tylenol 325mg Tab) 650 mg PO Q4 PRN PRN Reason: Pain, Mild (1-3) Last Admin: 06/29/16 08:39 Dose: 650 mg Allopurinol (Zyloprim) 100 mg PO DAILY [facility] Last Admin: 06/29/16 08:29 Dose: 100 mg Aspirin (Ecotrin) 81 mg PO DAILY [facility] Last Admin: 06/29/16 08:27 Dose: 81 mg Atorvastatin Calcium (Lipitor) 40 mg PO DAILY [facility] Last Admin: 06/29/16 08:30 Dose: 40 mg Enoxaparin Sodium (Lovenox) 30 mg SC DAILY [facility] PRN Reason: Protocol Last Admin: 06/29/16 08:29 Dose: 30 mg Ergocalciferol (Drisdol 50,000 Intl Units Cap) 1 cap PO SAT [facility] Last Admin: 06/28/16 09:50 Dose: 1 cap Furosemide (Lasix) 20 mg IVP DAILY [facility] Last Admin: 06/29/16 08:44 Dose: 20 mg Home Med (Alfuzosin Hcl [Uroxatral]) 10 mg PO DAILY [facility] Last Admin: 06/29/16 08:27 Dose: 10 mg Home Med (Dutasteride [Avodart]) 0.5 mg PO DAILY [facility] Last Admin: 06/29/16 08:28 Dose: 0.5 mg Home Med (Ranolazine [Ranexa]) 500 mg PO Q12 [facility] Last Admin: 06/29/16 08:28 Dose: 500 mg Home Med (Sacubitril/Valsartan [Entresto 97 Mg-103 Mg Tablet]) 1 tab PO BID [facility] Last Admin: 06/29/16 08:33 Dose: Not Given Sodium Chloride (Sodium Chloride 0.9%) 500 mls @ 75 mls/hr IV .Q6H40M [facility] Last Admin: 06/28/16 21:58 Dose: 75 mls/hr Insulin Detemir (Levemir) 12 units SC HS [facility] Last Admin: 06/28/16 21:57 Dose: Not Given Levothyroxine Sodium (Synthroid) 88 mcg PO DAILY@0630 [facility] Last Admin: 06/29/16 06:33 Dose: 88 mcg Metformin HCl (Glucophage) 1,000 mg PO BID [facility] Last Admin: 06/29/16 08:26 Dose: 1,000 mg Metoprolol Succinate (Toprol Xl) 100 mg PO DAILY [facility] Last Admin: 06/29/16 08:26 Dose: 100 mg Multivitamins/Minerals (Therapeutic-M Tab) 1 tab PO DAILY [facility] Last Admin: 06/29/16 08:29 Dose: 1 tab Repaglinide (Prandin) 4 mg PO TID [facility] Last Admin: 06/29/16 08:32 Dose: 4 mg Sevelamer Carbonate (Renvela) 0.8 gm PO 1130,1700 [facility] Last Admin: 06/28/16 17:04 Dose: 0.8 gm Sitagliptin Phosphate (Januvia) 50 mg PO BID [facility] Last Admin: 06/29/16 08:25 Dose: 50 mg - Labs Labs: 06/29/16 06:00 06/29/16 06:00 Assessment and Plan (1) Acute on chronic systolic and diastolic heart failure, NYHA class 2 Status: Acute (2) DM2 (diabetes mellitus, type 2) Status: Acute (3) DVT prophylaxis Status: Acute
[2016-06-29 10:00] LABS: NEUTROPHIL 73 % (42-75); TOTAL CELLS COUNTED 100
[2016-06-29 10:01] LABS: LARGE PLATELETS PRESENT
--- NOTE | 2016-06-29 10:53 | PN ---
DATE: 06/29/2016 The patient evaluated in bed. No complaints except for some mild left knee pain related to chronic o steoarthritis. No fever, chills, nausea, vomiting, diarrhea, shortness of breath, or chest pain. LABORATORY DATA: Blood work is noted. Potassium is slightly elevated at 5.3. Sodium is coming up a t 126. REVIEW OF SYSTEMS: Left knee pain. PHYSICAL EXAMINATION: GENERAL: Alert and oriented. HEART: Regular rate and rhythm. No murmurs, rubs, or gallops. LUNGS: Clear in all almendarez bilaterally. ABDOMEN: Soft, nontender. Bowel sounds x 4. EXTREMITIES: Distal pulses, motor sensation intact. Cap refill is brisk. Slight left knee pain wit h range of motion. DIAGNOSES AND PLAN: 1. Congestive heart failure with acute renal injury. Sodium is coming back up. Gentle diuresis, is status post 500 mL at 75 an hour. We will continue to monitor. Confirming potassium is 5.3, as the patient did come in with hyperkalemia. Yesterday's specimen is hemolyzed, checking to see if today' s specimen has hemolyzed as well. Further treatment based upon confirmation of this. Continue all m edicine. 2. The patient is cleared for discharge. The patient is ready for discharge upon confirmation of hi s lab values. 3. Osteoarthritis, left knee, Tylenol p.r.n. 4. Deep venous thrombosis prophylaxis. Sequential compression devices and anti-embolism hose, Loven ox. Possible discharge later today or early tomorrow. We will continue to follow closely. The patient i s overall comfortable. Felix SPENCE cc: [id number] TT: 06/29/2016 10:52:49 Confirmation # [id number] Dictation # [id number] matilda
[2016-06-29] MEDS: Sevelamer Carb 0.8 gm/Packet PO SCH ×2 (11:15→16:23)
[2016-06-29] MEDS ORDERED: Sod Polystyrene Sulf 15 gm/60 ml Oral Susp PO ONE (11:30)
--- NOTE | 2016-06-29 13:08 | CP.PCM.PN ---
Subjective - Date & Time of Evaluation Date of Evaluation: 06/29/16 Time of Evaluation: 13:00 - Subjective Subjective: patient has no current chest pain or dyspnea. wants to go home. Objective - Vital Signs/Intake and Output Vital Signs (last 24 hours): Temp Pulse Resp BP Pulse Ox 98 F 106 H 18 118/69 99 06/29/16 11:48 06/29/16 11:48 06/29/16 11:48 06/29/16 11:48 06/29/16 11:48 Intake and Output: 06/29/16 06/29/16 06:59 18:59 Intake Total 170 Output Total 120 Balance 50 - Medications Medications: Current Medications Acetaminophen (Tylenol 325mg Tab) 650 mg PO Q4 PRN PRN Reason: Pain, Mild (1-3) Last Admin: 06/29/16 08:39 Dose: 650 mg Allopurinol (Zyloprim) 100 mg PO DAILY [facility] Last Admin: 06/29/16 08:29 Dose: 100 mg Aspirin (Ecotrin) 81 mg PO DAILY [facility] Last Admin: 06/29/16 08:27 Dose: 81 mg Atorvastatin Calcium (Lipitor) 40 mg PO DAILY [facility] Last Admin: 06/29/16 08:30 Dose: 40 mg Enoxaparin Sodium (Lovenox) 30 mg SC DAILY [facility] PRN Reason: Protocol Last Admin: 06/29/16 08:29 Dose: 30 mg Ergocalciferol (Drisdol 50,000 Intl Units Cap) 1 cap PO SAT [facility] Last Admin: 06/28/16 09:50 Dose: 1 cap Furosemide (Lasix) 20 mg IVP DAILY [facility] Last Admin: 06/29/16 08:44 Dose: 20 mg Home Med (Alfuzosin Hcl [Uroxatral]) 10 mg PO DAILY [facility] Last Admin: 06/29/16 08:27 Dose: 10 mg Home Med (Dutasteride [Avodart]) 0.5 mg PO DAILY [facility] Last Admin: 06/29/16 08:28 Dose: 0.5 mg Home Med (Ranolazine [Ranexa]) 500 mg PO Q12 [facility] Last Admin: 06/29/16 08:28 Dose: 500 mg Home Med (Sacubitril/Valsartan [Entresto 97 Mg-103 Mg Tablet]) 1 tab PO BID [facility] Last Admin: 06/29/16 08:33 Dose: Not Given Sodium Chloride (Sodium Chloride 0.9%) 500 mls @ 75 mls/hr IV .Q6H40M [facility] Last Admin: 06/28/16 21:58 Dose: 75 mls/hr Insulin Detemir (Levemir) 12 units SC HS [facility] Last Admin: 06/28/16 21:57 Dose: Not Given Levothyroxine Sodium (Synthroid) 88 mcg PO DAILY@0630 [facility] Last Admin: 06/29/16 06:33 Dose: 88 mcg Metformin HCl (Glucophage) 1,000 mg PO BID [facility] Last Admin: 06/29/16 08:26 Dose: 1,000 mg Metoprolol Succinate (Toprol Xl) 100 mg PO DAILY [facility] Last Admin: 06/29/16 08:26 Dose: 100 mg Multivitamins/Minerals (Therapeutic-M Tab) 1 tab PO DAILY [facility] Last Admin: 06/29/16 08:29 Dose: 1 tab Repaglinide (Prandin) 4 mg PO TID [facility] Last Admin: 06/29/16 08:32 Dose: 4 mg Sevelamer Carbonate (Renvela) 0.8 gm PO 1130,1700 [facility] Last Admin: 06/29/16 11:15 Dose: 0.8 gm Sitagliptin Phosphate (Januvia) 50 mg PO BID [facility] Last Admin: 06/29/16 08:25 Dose: 50 mg - Labs Labs: 06/29/16 06:00 06/29/16 06:00 - Constitutional Appears: Non-toxic - Head Exam Head Exam: NORMAL INSPECTION - Eye Exam Eye Exam: Normal appearance - ENT Exam ENT Exam: Mucous Membranes Moist - Neck Exam Neck Exam: Full ROM - Respiratory Exam Respiratory Exam: Decreased Breath Sounds - Cardiovascular Exam Cardiovascular Exam: REGULAR RHYTHM - GI/Abdominal Exam GI & Abdominal Exam: Normal Bowel Sounds - Rectal Exam Rectal Exam: Deferred - Extremities Exam Extremities Exam: Pedal Edema - Back Exam Back Exam: NORMAL INSPECTION - Neurological Exam Neurological Exam: Alert - Psychiatric Exam Psychiatric exam: Normal Affect - Skin Skin Exam: Normal Color Assessment and Plan (1) Acute on chronic systolic and diastolic heart failure, NYHA class 2 Assessment & Plan: improved. decrease diuretic therapy. likely stable for discharge as patient has improved symptoms however may need reevaluation of sodium. Status: Acute (2) CAD (coronary artery disease) Assessment & Plan: no current angina Status: Acute (3) DM2 (diabetes mellitus, type 2) Assessment & Plan: glucose control Status: Acute (4) Aortic stenosis Assessment & Plan: clinically stable. 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 Status: Acute
[2016-06-29 17:02] LABS: BLOOD UREA NITROGEN 46 mg/dl (9-20); CALCIUM 8.5 mg/dL (8.4-10.2); CARBON DIOXIDE 26 mmol/L (22-30); CHLORIDE 88 mmol/L (98-107); GFR AFRICAN-AMERICAN > 60; GLUCOSE,RANDOM 120 mg/dL (75-110); POTASSIUM 5.1 MMOL/L (3.6-5.0); SODIUM 123 mmol/l (132-148)
[2016-06-29 21:24] LABS: GFR AFRICAN-AMERICAN > 60
[2016-06-29] MEDS: Insulin Detemir 100 Units/ml Inj SC SCH (21:33)
[2016-06-29] MEDS: Sodium Chloride 0.9% 500 ML IV SCH (21:35)
[2016-06-30 02:04] LABS: RBC URINE 5 /hpf (0-3); URINE BILIRUBIN NEGATIVE (NEGATIVE); URINE BLOOD NEGATIVE (NEGATIVE); URINE COLOR AMBER (YELLOW); URINE GLUCOSE (UA) NEG (Normal); URINE KETONE NEGATIVE (NEGATIVE); URINE LEUKOCYTE ESTERASE NEG Leu/uL (Negative); URINE PROTEIN NEGATIVE (NEGATIVE); URINE UROBILINOGEN 0.2-1.0 mg/dL (0.2-1.0); WBC URINE < 1 /hpf (0-5)
[2016-06-30] MEDS: Sodium Chloride 0.9% 500 ML IV SCH (03:58)
--- NOTE | 2016-06-30 07:25 | CP.PCM.PN ---
Subjective - Date & Time of Evaluation Date of Evaluation: 06/30/16 Time of Evaluation: 07:25 - Subjective Subjective: pt comfortable in bed, no f/c, n/v/d. still w/ occational dyspnea on exertion but is comfortable at present. no pain. bw noted. nephro consult pending. for hyponatremia/hyperkalemia Objective - Vital Signs/Intake and Output Vital Signs (last 24 hours): Temp Pulse Resp BP Pulse Ox 97.6 F 85 20 107/66 97 06/30/16 05:16 06/30/16 05:16 06/30/16 05:16 06/30/16 05:16 06/30/16 05:16 - Medications Medications: Current Medications Acetaminophen (Tylenol 325mg Tab) 650 mg PO Q4 PRN PRN Reason: Pain, Mild (1-3) Last Admin: 06/29/16 18:46 Dose: 650 mg Allopurinol (Zyloprim) 100 mg PO DAILY [facility] Last Admin: 06/29/16 08:29 Dose: 100 mg Aspirin (Ecotrin) 81 mg PO DAILY [facility] Last Admin: 06/29/16 08:27 Dose: 81 mg Atorvastatin Calcium (Lipitor) 40 mg PO DAILY [facility] Last Admin: 06/29/16 08:30 Dose: 40 mg Enoxaparin Sodium (Lovenox) 30 mg SC DAILY [facility] PRN Reason: Protocol Last Admin: 06/29/16 08:29 Dose: 30 mg Ergocalciferol (Drisdol 50,000 Intl Units Cap) 1 cap PO SAT [facility] Last Admin: 06/28/16 09:50 Dose: 1 cap Furosemide (Lasix) 20 mg IVP DAILY [facility] Last Admin: 06/29/16 08:44 Dose: 20 mg Home Med (Alfuzosin Hcl [Uroxatral]) 10 mg PO DAILY [facility] Last Admin: 06/29/16 08:27 Dose: 10 mg Home Med (Dutasteride [Avodart]) 0.5 mg PO DAILY [facility] Last Admin: 06/29/16 08:28 Dose: 0.5 mg Home Med (Ranolazine [Ranexa]) 500 mg PO Q12 [facility] Last Admin: 06/29/16 21:36 Dose: 500 mg Home Med (Sacubitril/Valsartan [Entresto 97 Mg-103 Mg Tablet]) 1 tab PO BID [facility] Last Admin: 06/29/16 16:25 Dose: Not Given Sodium Chloride (Sodium Chloride 0.9%) 500 mls @ 75 mls/hr IV .Q6H40M [facility] Last Admin: 06/30/16 03:58 Dose: 75 mls/hr Insulin Detemir (Levemir) 12 units SC HS [facility] Last Admin: 06/29/16 21:33 Dose: Not Given Levothyroxine Sodium (Synthroid) 88 mcg PO DAILY@0630 [facility] Last Admin: 06/29/16 06:33 Dose: 88 mcg Metformin HCl (Glucophage) 1,000 mg PO BID [facility] Last Admin: 06/29/16 18:48 Dose: Not Given Metoprolol Succinate (Toprol Xl) 100 mg PO DAILY [facility] Last Admin: 06/29/16 08:26 Dose: 100 mg Multivitamins/Minerals (Therapeutic-M Tab) 1 tab PO DAILY [facility] Last Admin: 06/29/16 08:29 Dose: 1 tab Repaglinide (Prandin) 4 mg PO TID [facility] Last Admin: 06/29/16 16:22 Dose: 4 mg Sevelamer Carbonate (Renvela) 0.8 gm PO 1130,1700 [facility] Last Admin: 06/29/16 16:23 Dose: 0.8 gm Sitagliptin Phosphate (Januvia) 50 mg PO BID [facility] Last Admin: 06/29/16 18:47 Dose: Not Given - Labs Labs: 06/29/16 06:00 06/29/16 21:00 - Constitutional Appears: Well, Non-toxic, No Acute Distress - Head Exam Head Exam: ATRAUMATIC, NORMAL INSPECTION, NORMOCEPHALIC - Eye Exam Eye Exam: EOMI, Normal appearance, PERRL Pupil Exam: NORMAL ACCOMODATION, PERRL - ENT Exam ENT Exam: Mucous Membranes Moist, Normal Exam - Neck Exam Neck Exam: Full ROM, Normal Inspection. absent: Lymphadenopathy - Respiratory Exam Respiratory Exam: Clear to Ausculation Bilateral, NORMAL BREATHING PATTERN - Cardiovascular Exam Cardiovascular Exam: REGULAR RHYTHM, RRR, +S1, +S2. absent: Murmur - GI/Abdominal Exam GI & Abdominal Exam: Soft, Normal Bowel Sounds. absent: Tenderness - Extremities Exam Extremities Exam: Full ROM, Normal Capillary Refill, Normal Inspection. absent : Joint Swelling, Pedal Edema - Back Exam Back Exam: NORMAL INSPECTION - Neurological Exam Neurological Exam: Alert, Awake, CN II-XII Intact, Normal Gait, Oriented x3 - Psychiatric Exam Psychiatric exam: Normal Affect, Normal Mood - Skin Skin Exam: Dry, Intact, Normal Color, Warm Assessment and Plan (1) Acute on chronic systolic and diastolic heart failure, NYHA class 2 Status: Acute (2) DM2 (diabetes mellitus, type 2) Status: Acute (3) DVT prophylaxis Status: Acute - Assessment and Plan (Free Text) Assessment: (1) Acute on chronic systolic and diastolic heart failure, NYHA class 2 Assessment and Plan: cardio, gentle diuresis echo tele ?? sat, pt/ot-pt refused tcu cleared by cardio Status: Acute (2) DM2 (diabetes mellitus, type 2) Assessment and Plan: riss, fsbg, home meds Status: Acute (3) DVT prophylaxis Assessment and Plan: scd and aehose, lovenox Status: Acute 4-hyponatremia/hyperkalemia-mckenzie r/t ckd, nephro, s/p kayexalate
[2016-06-30 07:27] LABS: BASO % 0.1 % (0.0-2.0); EOS % 0.1 % (0.0-4.0); HEMATOCRIT 29.4 % (35.0-51.0); LYMPH # 0.8 K/uL (1.0-4.3); LYMPH % 6.8 % (20.0-40.0); MEAN CELL VOLUME 91.9 fl (80.0-94.0); MEAN CORPUSCULAR HEMOGLOBIN 31.3 pg (27.0-31.0); MEAN CORPUSCULAR HGB CONC 34.1 g/dL (33.0-37.0); MEAN PLATELET VOLUME 9.3 fl (7.2-11.7); MONO # 1.5 K/uL (0.0-0.8); MONO % 12.2 % (0.0-10.0); NEUT % 80.8 % (50.0-75.0); RED CELL DISTRIBUTION WIDTH 13.2 % (11.5-14.5); WHITE BLOOD COUNT 12.3 K/uL (4.8-10.8)
[2016-06-30 07:31] LABS: ALB/GLOB RATIO 0.9 (1.0-2.1); BILIRUBIN,TOTAL 1.1 mg/dl (0.2-1.3); CALCIUM 8.7 mg/dL (8.4-10.2); POTASSIUM 5.2 MMOL/L (3.6-5.0); TOTAL PROTEIN 7.1 G/DL (6.3-8.2); URIC ACID 5.7 mg/Dl (3.5-8.5)
[2016-06-30] MEDS: SACUBITRIL PO SCH ×2 (09:10→16:48)
[2016-06-30] MEDS: VALSARTAN PO SCH ×2 (09:10→16:48)
[2016-06-30] MEDS: Multivitamin With Minerals Tab PO SCH (09:12)
[2016-06-30] MEDS: Metoprolol Succinate 100 mg XL Tab PO SCH (09:12)
[2016-06-30] MEDS: Levothyroxine 88 MCG TAB PO SCH (09:12)
[2016-06-30] MEDS: Enoxaparin 30 mg Syringe SC SCH (09:13)
--- NOTE | 2016-06-30 10:20 | CP.PCM.CON ---
History of Present Illness - History of Present Illness History of Present Illness: 89 y/o male with Hx/o CHF,CABG, AICD, DM, Rt lung surgery for pulmonary TB many yrs ago was admitted for c/o SOB & decompensated CHF. Renal consult is requested because of elevated Creat. & hyponatremia. Pt states that he still feels very SOB with slightest excertion & is not making much urine Past Patient History - Infectious Disease Hx of Infectious Diseases: None - Tetanus Immunizations Tetanus Immunization: Unknown - Past Medical History & Family History Past Medical History?: Yes - Past Social History Alcohol: None - CARDIAC Hx Cardia Arrhythmia: Yes (w/ defibrillator) Hx Congestive Heart Failure: Yes Hx Hypercholesterolemia: Yes Hx Hypertension: Yes Hx Peripheral Edema: Yes - PULMONARY Hx Respiratory Disorders: No Hx Asthma: No Hx Bronchitis: No Hx Chronic Obstructive Pulmonary Disease (COPD): No Hx Emphysema: No Hx Lung Cancer: No Hx Pneumonia: Yes Hx Pulmonary Edema: No Hx Pulmonary Embolism: No Hx Respiratory Aspiration: No Hx Respiratory Tract Infection: No Hx Sleep Apnea: No Hx Tuberculosis: No - NEUROLOGICAL Hx Neurological Disorder: No - HEENT Hx HEENT Problems: No - RENAL Hx Chronic Kidney Disease: Yes - ENDOCRINE/METABOLIC Hx Hypothyroidism: Yes - HEMATOLOGICAL/ONCOLOGICAL Hx Human Immunodeficiency Virus (HIV): No - MUSCULOSKELETAL/RHEUMATOLOGICAL Hx Falls: Yes - GASTROINTESTINAL Hx Gastrointestinal Disorders: No - GENITOURINARY/GYNECOLOGICAL Hx Genitourinary Disorders: Yes (Prostatic hyperplasia) - PSYCHIATRIC Hx Substance Use: No - SURGICAL HISTORY Hx Coronary Artery Bypass Graft: Yes - ANESTHESIA Hx Anesthesia: Yes Hx Anesthesia Reactions: No Meds Home Medications: Home Medication List Medication Instructions Recorded Confirmed Type Nitroglycerin [Nitromist] 4.1 gm TL Q5M #1 spray 06/28/16 Rx Allergies/Adverse Reactions: Allergies Allergy/AdvReac Type Severity Reaction Status Date / Time No Known Allergies Allergy Unverified 03/14/14 18:48 - Medications Medications: Current Medications Acetaminophen (Tylenol 325mg Tab) 650 mg PO Q4 PRN PRN Reason: Pain, Mild (1-3) Last Admin: 06/29/16 18:46 Dose: 650 mg Allopurinol (Zyloprim) 100 mg PO DAILY [facility] Last Admin: 06/30/16 09:13 Dose: 100 mg Aspirin (Ecotrin) 81 mg PO DAILY [facility] Last Admin: 06/30/16 09:12 Dose: 81 mg Atorvastatin Calcium (Lipitor) 40 mg PO DAILY [facility] Last Admin: 06/30/16 09:12 Dose: 40 mg Enoxaparin Sodium (Lovenox) 30 mg SC DAILY [facility] PRN Reason: Protocol Last Admin: 06/30/16 09:13 Dose: 30 mg Ergocalciferol (Drisdol 50,000 Intl Units Cap) 1 cap PO SAT [facility] Last Admin: 06/28/16 09:50 Dose: 1 cap Furosemide (Lasix) 20 mg IVP DAILY [facility] Last Admin: 06/30/16 09:13 Dose: 20 mg Home Med (Alfuzosin Hcl [Uroxatral]) 10 mg PO DAILY [facility] Last Admin: 06/30/16 09:19 Dose: 10 mg Home Med (Dutasteride [Avodart]) 0.5 mg PO DAILY [facility] Last Admin: 06/30/16 09:10 Dose: 0.5 mg Home Med (Ranolazine [Ranexa]) 500 mg PO Q12 [facility] Last Admin: 06/30/16 09:11 Dose: 500 mg Home Med (Sacubitril/Valsartan [Entresto 97 Mg-103 Mg Tablet]) 1 tab PO BID [facility] Last Admin: 06/30/16 09:10 Dose: 1 tab Sodium Chloride (Sodium Chloride 0.9%) 500 mls @ 75 mls/hr IV .Q6H40M [facility] Last Admin: 06/30/16 03:58 Dose: 75 mls/hr Insulin Detemir (Levemir) 12 units SC HS [facility] Last Admin: 06/29/16 21:33 Dose: Not Given Levothyroxine Sodium (Synthroid) 88 mcg PO DAILY@0630 [facility] Last Admin: 06/30/16 09:12 Dose: 88 mcg Metformin HCl (Glucophage) 1,000 mg PO BID [facility] Last Admin: 06/30/16 09:14 Dose: 1,000 mg Metoprolol Succinate (Toprol Xl) 100 mg PO DAILY [facility] Last Admin: 06/30/16 09:12 Dose: 100 mg Multivitamins/Minerals (Therapeutic-M Tab) 1 tab PO DAILY [facility] Last Admin: 06/30/16 09:12 Dose: 1 tab Nitroglycerin (Nitrostat Sl Tab) 0.4 mg SL Q5M PRN PRN Reason: cp/dyspnea Repaglinide (Prandin) 4 mg PO TID [facility] Last Admin: 06/30/16 09:11 Dose: 4 mg Sevelamer Carbonate (Renvela) 0.8 gm PO 1130,1700 [facility] Last Admin: 06/29/16 16:23 Dose: 0.8 gm Sitagliptin Phosphate (Januvia) 50 mg PO BID [facility] Last Admin: 06/30/16 09:11 Dose: 50 mg Physical Exam - Constitutional Additional comments: Appears mildly dyspneic while sitting in chair - Head Exam Head Exam: ATRAUMATIC, NORMOCEPHALIC - Eye Exam Additional comments: Sclerae anicteric - ENT Exam ENT Exam: Mucous Membranes Moist - Neck Exam Additional comments: Neck supple - Respiratory Exam Additional comments: Fine crackles @ bases - Cardiovascular Exam Cardiovascular Exam: REGULAR RHYTHM - GI/Abdominal Exam GI & Abdominal Exam: Distended Additional comments: Nontender - Extremities Exam Additional comments: 2+ bipedal edema Results - Vital Signs Recent Vital Signs: Last Vital Signs Temp 98 F 06/30/16 07:54 Pulse 104 H 06/30/16 09:12 Resp 18 06/30/16 07:54 BP 102/62 06/30/16 09:13 Pulse Ox 100 06/30/16 07:54 - Labs Result Diagrams: 06/30/16 06:00 06/30/16 06:00 Labs: Laboratory Results - last 24 hr 06/29/16 06/29/16 06/29/16 10:51 16:10 16:38 WBC RBC Hgb Hct MCV MCH MCHC RDW Plt Count MPV Neut % (Auto) Lymph % (Auto) [place] % (Auto) Eos % (Auto) Baso % (Auto) Neut # Lymph # [place] # Eos # Baso # Sodium 123 L Potassium 5.1 H Chloride 88 L Carbon Dioxide 26 Anion Gap 14 BUN 46 H Creatinine 1.3 Est GFR ( Amer) > 60 Est GFR (Non-Af Amer) 52 POC Glucose (mg/dL) 174 H 124 H Random Glucose 120 H Serum Osmolality Uric Acid Calcium 8.5 Total Bilirubin AST ALT Alkaline Phosphatase Total Protein Albumin Globulin Albumin/Globulin Ratio Urine Color Urine Clarity Urine pH Ur Specific [place] Urine Protein Urine Glucose (UA) Urine Ketones Urine Blood Urine Nitrate Urine Bilirubin Urine Urobilinogen Ur Leukocyte Esterase Urine RBC (Auto) Urine Microscopic WBC Ur Squamous Epith Cells Urine Osmolality Ur Random Sodium 06/29/16 06/29/16 06/30/16 21:00 22:03 01:45 WBC RBC Hgb Hct MCV MCH MCHC RDW Plt Count MPV Neut % (Auto) Lymph % (Auto) [place] % (Auto) Eos % (Auto) Baso % (Auto) Neut # Lymph # [place] # Eos # Baso # Sodium Potassium Chloride Carbon Dioxide Anion Gap BUN Creatinine 1.3 Est GFR ( Amer) > 60 Est GFR (Non-Af Amer) 52 POC Glucose (mg/dL) 80 Random Glucose Serum Osmolality Uric Acid Calcium Total Bilirubin AST ALT Alkaline Phosphatase Total Protein Albumin Globulin Albumin/Globulin Ratio Urine Color Urine Clarity Urine pH Ur Specific [place] Urine Protein Urine Glucose (UA) Urine Ketones Urine Blood Urine Nitrate Urine Bilirubin Urine Urobilinogen Ur Leukocyte Esterase Urine RBC (Auto) Urine Microscopic WBC Ur Squamous Epith Cells Urine Osmolality 434 Ur Random Sodium < 5 06/30/16 06/30/16 06/30/16 01:45 05:28 06:00 WBC RBC Hgb Hct MCV MCH MCHC RDW Plt Count MPV Neut % (Auto) Lymph % (Auto) [place] % (Auto) Eos % (Auto) Baso % (Auto) Neut # Lymph # [place] # Eos # Baso # Sodium 123 L Potassium 5.2 H Chloride 87 L Carbon Dioxide 26 Anion Gap 15 BUN 47 H Creatinine 1.6 H Est GFR ( Amer) 49 Est GFR (Non-Af Amer) 41 POC Glucose (mg/dL) 128 H Random Glucose 113 H Serum Osmolality Uric Acid 5.7 Calcium 8.7 Total Bilirubin 1.1 AST 41 ALT 36 Alkaline Phosphatase 93 Total Protein 7.1 Albumin 3.5 Globulin 3.7 Albumin/Globulin Ratio 0.9 L Urine Color Rachel Urine Clarity Clear Urine pH 5.0 Ur Specific [place] 1.014 Urine Protein Negative Urine Glucose (UA) Neg Urine Ketones Negative Urine Blood Negative Urine Nitrate Negative Urine Bilirubin Negative Urine Urobilinogen 0.2-1.0 Ur Leukocyte Esterase Neg Urine RBC (Auto) 5 H Urine Microscopic WBC < 1 Ur Squamous Epith Cells < 1 Urine Osmolality Ur Random Sodium 06/30/16 06/30/16 06:00 06:00 WBC 12.3 H RBC 3.20 L Hgb 10.0 L Hct 29.4 L MCV 91.9 MCH 31.3 H MCHC 34.1 RDW 13.2 Plt Count 207 MPV 9.3 Neut % (Auto) 80.8 H Lymph % (Auto) 6.8 L [place] % (Auto) 12.2 H Eos % (Auto) 0.1 Baso % (Auto) 0.1 Neut # 10.0 H Lymph # 0.8 L [place] # 1.5 H Eos # 0.0 Baso # 0.0 Sodium Potassium Chloride Carbon Dioxide Anion Gap BUN Creatinine Est GFR ( Amer) Est GFR (Non-Af Amer) POC Glucose (mg/dL) Random Glucose Serum Osmolality 270 L Uric Acid Calcium Total Bilirubin AST ALT Alkaline Phosphatase Total Protein Albumin Globulin Albumin/Globulin Ratio Urine Color Urine Clarity Urine pH Ur Specific [place] Urine Protein Urine Glucose (UA) Urine Ketones Urine Blood Urine Nitrate Urine Bilirubin Urine Urobilinogen Ur Leukocyte Esterase Urine RBC (Auto) Urine Microscopic WBC Ur Squamous Epith Cells Urine Osmolality Ur Random Sodium Assessment & Plan - Assessment and Plan (Free Text) Assessment: Hyponatremia. Clinically appears to be dilutional secondary to heart failurue & volume overload Renal insufficiency . Probably chronic. Although baseline creatinine is not available CAD/CABG, CHF, Hx/o pulmonary TB DM BPH Plan: Suggest to discontinue NS & maintein on IV diuretics Will repeat urine spot lytes Urine sodium was low initially probably due to decompensated CHF renal US Urine for micro albumin
[2016-06-30] MEDS: Sevelamer Carb 0.8 gm/Packet PO SCH ×2 (12:00→16:47)
--- NOTE | 2016-06-30 13:02 | US ---
PROCEDURE: Ultrasound of the Kidneys HISTORY: renal failure COMPARISON: None available. TECHNIQUE: Sonogram of the kidneys. FINDINGS: RIGHT KIDNEY: Measures: 11.3 x 9.8 x 5.6 cm. 6.8 x 8.0 x 6.5 cm right lower pole anechoic lesion without appreciable vascularity consistent with a cyst. No hydronephrosis or obstructing calculus identified. LEFT KIDNEY: Measures: 11.3 x 5.5 x 4.7 cm. 1.3 x 1.1 x 0.7 cm hypoechoic avascular midpole structure, likely cysts. No hydronephrosis or obstructing calculus identified. OTHER FINDINGS: None. IMPRESSION: 8.0 cm probable right lower pole renal cyst. 1.3 cm probable left middle pole renal cyst.
--- NOTE | 2016-06-30 20:33 | CP.PCM.PN ---
Subjective - Date & Time of Evaluation Date of Evaluation: 06/30/16 Time of Evaluation: 20:30 - Subjective Subjective: patient has no dyspnea Objective - Vital Signs/Intake and Output Vital Signs (last 24 hours): Temp Pulse Resp BP Pulse Ox 97.4 F L 88 20 92/50 L 94 L 06/30/16 15:37 06/30/16 15:37 06/30/16 15:37 06/30/16 15:37 06/30/16 15:37 Intake and Output: 06/30/16 07/01/16 18:59 06:59 Intake Total 550 Output Total 550 Balance 0 - Medications Medications: Current Medications Acetaminophen (Tylenol 325mg Tab) 650 mg PO Q4 PRN PRN Reason: Pain, Mild (1-3) Last Admin: 06/29/16 18:46 Dose: 650 mg Allopurinol (Zyloprim) 100 mg PO DAILY [facility] Last Admin: 06/30/16 09:13 Dose: 100 mg Aspirin (Ecotrin) 81 mg PO DAILY [facility] Last Admin: 06/30/16 09:12 Dose: 81 mg Atorvastatin Calcium (Lipitor) 40 mg PO DAILY [facility] Last Admin: 06/30/16 09:12 Dose: 40 mg Enoxaparin Sodium (Lovenox) 30 mg SC DAILY [facility] PRN Reason: Protocol Last Admin: 06/30/16 09:13 Dose: 30 mg Ergocalciferol (Drisdol 50,000 Intl Units Cap) 1 cap PO SAT [facility] Last Admin: 06/28/16 09:50 Dose: 1 cap Furosemide (Lasix) 20 mg IVP DAILY [facility] Last Admin: 06/30/16 09:13 Dose: 20 mg Home Med (Alfuzosin Hcl [Uroxatral]) 10 mg PO DAILY [facility] Last Admin: 06/30/16 09:19 Dose: 10 mg Home Med (Dutasteride [Avodart]) 0.5 mg PO DAILY [facility] Last Admin: 06/30/16 09:10 Dose: 0.5 mg Home Med (Ranolazine [Ranexa]) 500 mg PO Q12 [facility] Last Admin: 06/30/16 09:11 Dose: 500 mg Home Med (Sacubitril/Valsartan [Entresto 97 Mg-103 Mg Tablet]) 1 tab PO BID [facility] Last Admin: 06/30/16 16:48 Dose: 1 tab Insulin Detemir (Levemir) 12 units SC HS [facility] Last Admin: 06/29/16 21:33 Dose: Not Given Levothyroxine Sodium (Synthroid) 88 mcg PO DAILY@0630 [facility] Last Admin: 06/30/16 09:12 Dose: 88 mcg Metformin HCl (Glucophage) 1,000 mg PO BID [facility] Last Admin: 06/30/16 16:46 Dose: 1,000 mg Metoprolol Succinate (Toprol Xl) 100 mg PO DAILY [facility] Last Admin: 06/30/16 09:12 Dose: 100 mg Multivitamins/Minerals (Therapeutic-M Tab) 1 tab PO DAILY [facility] Last Admin: 06/30/16 09:12 Dose: 1 tab Nitroglycerin (Nitrostat Sl Tab) 0.4 mg SL Q5M PRN PRN Reason: cp/dyspnea Repaglinide (Prandin) 4 mg PO TID [facility] Last Admin: 06/30/16 16:47 Dose: 4 mg Sevelamer Carbonate (Renvela) 0.8 gm PO 1130,1700 [facility] Last Admin: 06/30/16 16:47 Dose: 0.8 gm Sitagliptin Phosphate (Januvia) 50 mg PO BID [facility] Last Admin: 06/30/16 16:48 Dose: 50 mg - Labs Labs: 06/30/16 06:00 06/30/16 06:00 - Constitutional Appears: Non-toxic - Head Exam Head Exam: NORMAL INSPECTION - Eye Exam Eye Exam: Normal appearance - ENT Exam ENT Exam: Mucous Membranes Moist - Neck Exam Neck Exam: Full ROM - Respiratory Exam Respiratory Exam: Decreased Breath Sounds - Cardiovascular Exam Cardiovascular Exam: REGULAR RHYTHM - GI/Abdominal Exam GI & Abdominal Exam: Normal Bowel Sounds - Rectal Exam Rectal Exam: Deferred - Extremities Exam Extremities Exam: Pedal Edema - Back Exam Back Exam: NORMAL INSPECTION - Neurological Exam Neurological Exam: Alert - Psychiatric Exam Psychiatric exam: Normal Affect - Skin Skin Exam: Normal Color Assessment and Plan (1) Acute on chronic systolic and diastolic heart failure, NYHA class 2 Assessment & Plan: improving. holding diuretic therapy Status: Acute (2) CAD (coronary artery disease) Assessment & Plan: s/p CABG. Status: Acute (3) DM2 (diabetes mellitus, type 2) Assessment & Plan: blood sugar control Status: Acute (4) Aortic stenosis Assessment & Plan: will follow up with primary timber deadener Status: Acute
[2016-06-30] MEDS: Insulin Detemir 100 Units/ml Inj SC SCH (21:19)
[2016-07-01 01:13] LABS: CREATININE, RANDOM URINE 147.9 mg/dL
[2016-07-01 06:47] LABS: BASO % 0.2 % (0.0-2.0); EOS % 0.3 % (0.0-4.0); HEMATOCRIT 27.2 % (35.0-51.0); LYMPH # 0.8 K/uL (1.0-4.3); LYMPH % 8.7 % (20.0-40.0); MEAN CELL VOLUME 91.6 fl (80.0-94.0); MEAN CORPUSCULAR HEMOGLOBIN 31.2 pg (27.0-31.0); MEAN CORPUSCULAR HGB CONC 34.1 g/dL (33.0-37.0); MEAN PLATELET VOLUME 8.9 fl (7.2-11.7); MONO # 1.2 K/uL (0.0-0.8); NEUT # 7.4 K/uL (1.8-7.0); NEUT % 77.8 % (50.0-75.0); RED CELL DISTRIBUTION WIDTH 13.3 % (11.5-14.5); WHITE BLOOD COUNT 9.5 K/uL (4.8-10.8)
[2016-07-01 06:59] LABS: ALB/GLOB RATIO 1.2 (1.0-2.1); BILIRUBIN,TOTAL 0.9 mg/dl (0.2-1.3); CALCIUM 8.3 mg/dL (8.4-10.2); TOTAL PROTEIN 6.7 G/DL (6.3-8.2)
[2016-07-01 07:09] LABS: POTASSIUM 5.5 MMOL/L (3.6-5.0)
[2016-07-01] MEDS: Levothyroxine 88 MCG TAB PO SCH (09:14)
[2016-07-01] MEDS: Multivitamin With Minerals Tab PO SCH (09:46)
[2016-07-01] MEDS: Enoxaparin 30 mg Syringe SC SCH (09:47)
[2016-07-01] MEDS: SACUBITRIL PO SCH (09:48)
[2016-07-01] MEDS: VALSARTAN PO SCH (09:48)
[2016-07-01] MEDS: Metoprolol Succinate 100 mg XL Tab PO SCH (09:48)
--- NOTE | 2016-07-01 10:48 | CP.PCM.PN ---
Subjective - Date & Time of Evaluation Date of Evaluation: 07/01/16 Time of Evaluation: 10:48 - Subjective Subjective: pt na 117 today, nephro toadjust dm2 meds and start meds to raise sodium, decr overall fluid volume as pt is + 3lbs as well. pt denies cp, dyspnea but c/o dizziness. no f/c, n/v/d. all labs note.d son at bedside nand case d/c w/ him and dr [email or web address]. Objective - Vital Signs/Intake and Output Vital Signs (last 24 hours): Temp Pulse Resp BP Pulse Ox 98.3 F 77 18 91/48 L 98 07/01/16 07:30 07/01/16 09:48 07/01/16 07:30 07/01/16 09:48 07/01/16 07:30 - Medications Medications: Current Medications Acetaminophen (Tylenol 325mg Tab) 650 mg PO Q4 PRN PRN Reason: Pain, Mild (1-3) Last Admin: 06/29/16 18:46 Dose: 650 mg Allopurinol (Zyloprim) 100 mg PO DAILY [facility] Last Admin: 07/01/16 09:46 Dose: 100 mg Aspirin (Ecotrin) 81 mg PO DAILY [facility] Last Admin: 07/01/16 09:46 Dose: 81 mg Atorvastatin Calcium (Lipitor) 40 mg PO DAILY [facility] Last Admin: 07/01/16 09:46 Dose: 40 mg Enoxaparin Sodium (Lovenox) 30 mg SC DAILY [facility] PRN Reason: Protocol Last Admin: 07/01/16 09:47 Dose: 30 mg Ergocalciferol (Drisdol 50,000 Intl Units Cap) 1 cap PO SAT [facility] Last Admin: 06/28/16 09:50 Dose: 1 cap Furosemide (Lasix) 20 mg IVP DAILY [facility] Last Admin: 07/01/16 09:47 Dose: Not Given Home Med (Alfuzosin Hcl [Uroxatral]) 10 mg PO DAILY [facility] Last Admin: 07/01/16 09:47 Dose: 10 mg Home Med (Dutasteride [Avodart]) 0.5 mg PO DAILY [facility] Last Admin: 07/01/16 09:46 Dose: 0.5 mg Home Med (Ranolazine [Ranexa]) 500 mg PO Q12 [facility] Last Admin: 07/01/16 09:47 Dose: 500 mg Home Med (Sacubitril/Valsartan [Entresto 97 Mg-103 Mg Tablet]) 1 tab PO BID [facility] Last Admin: 07/01/16 09:48 Dose: Not Given Insulin Detemir (Levemir) 12 units SC HS [facility] Last Admin: 06/30/16 21:19 Dose: Not Given Levothyroxine Sodium (Synthroid) 88 mcg PO DAILY@0630 [facility] Last Admin: 07/01/16 09:14 Dose: Not Given Metoprolol Succinate (Toprol Xl) 100 mg PO DAILY [facility] Last Admin: 07/01/16 09:48 Dose: Not Given Multivitamins/Minerals (Therapeutic-M Tab) 1 tab PO DAILY [facility] Last Admin: 07/01/16 09:46 Dose: 1 tab Nitroglycerin (Nitrostat Sl Tab) 0.4 mg SL Q5M PRN PRN Reason: cp/dyspnea Repaglinide (Prandin) 4 mg PO TID [facility] Last Admin: 07/01/16 09:48 Dose: Not Given Sevelamer Carbonate (Renvela) 0.8 gm PO 1130,1700 [facility] Last Admin: 06/30/16 16:47 Dose: 0.8 gm Sitagliptin Phosphate (Januvia) 25 mg PO DAILY [facility] - Labs Labs: 07/01/16 06:05 07/01/16 06:05 - Constitutional Appears: Well, Non-toxic, No Acute Distress - Head Exam Head Exam: ATRAUMATIC, NORMAL INSPECTION, NORMOCEPHALIC - Eye Exam Eye Exam: EOMI, Normal appearance, PERRL Pupil Exam: NORMAL ACCOMODATION, PERRL - ENT Exam ENT Exam: Mucous Membranes Moist, Normal Exam - Neck Exam Neck Exam: Full ROM, Normal Inspection. absent: Lymphadenopathy - Respiratory Exam Respiratory Exam: Clear to Ausculation Bilateral, NORMAL BREATHING PATTERN - Cardiovascular Exam Cardiovascular Exam: REGULAR RHYTHM, RRR, +S1, +S2. absent: Murmur - GI/Abdominal Exam GI & Abdominal Exam: Soft, Normal Bowel Sounds. absent: Tenderness - Extremities Exam Extremities Exam: Full ROM, Normal Capillary Refill, Normal Inspection, Pedal Edema. absent: Joint Swelling - Back Exam Back Exam: NORMAL INSPECTION - Neurological Exam Neurological Exam: Alert, Awake, CN II-XII Intact, Normal Gait, Oriented x3 - Psychiatric Exam Psychiatric exam: Normal Affect, Normal Mood - Skin Skin Exam: Dry, Intact, Normal Color, Warm Assessment and Plan (1) Acute on chronic systolic and diastolic heart failure, NYHA class 2 Status: Acute (2) DM2 (diabetes mellitus, type 2) Status: Acute (3) DVT prophylaxis Status: Acute - Assessment and Plan (Free Text) Assessment: (1) Acute on chronic systolic and diastolic heart failure, NYHA class 2 Assessment and Plan: cardio, gentle diuresis echo tele ?? sat, pt/ot-pt refused tcu cleared by cardio Status: Acute (2) DM2 (diabetes mellitus, type 2) Assessment and Plan: riss, fsbg, home meds Status: Acute (3) DVT prophylaxis Assessment and Plan: scd and aehose, lovenox Status: Acute 4-hyponatremia/hyperkalemia-mckenzie r/t ckd, nephro, kayexalate, adjust dm2 meds , further oders per nephro, montiro bmp and urine tests
[2016-07-01] MEDS ORDERED: Sod Polystyrene Sulf 15 gm/60 ml Oral Susp PO ONE ×2 (11:30→18:09)
[2016-07-01] MEDS ORDERED: Tolvaptan 15 MG TAB PO ONE (11:39)
[2016-07-01] MEDS: Sevelamer Carb 0.8 gm/Packet PO SCH ×2 (11:51→18:09)
--- NOTE | 2016-07-01 15:00 | CP.PCM.PN ---
Subjective - Date & Time of Evaluation Date of Evaluation: 07/01/16 Time of Evaluation: 11:00 - Subjective Subjective: Follow up Nephrology note Assessment: Acute Kidney Injury likely hemodynamic due to pre-renal state (urine Na <5), cardiorenal syndrome as with CHF and moderate to severe hypo-osmolar hypervolemic hyponatremia (worsening) likely due to CHF and ? SIADH Hypotension, mild hyperkalemia Anemia, CHF, renal cysts, lung mass Plan No acute need for renal replacement therapy at this time. however if condition continue to deteriorate, may be clinically indicated. discussed with family and they are Uncertain about this citing his overall poor health and age. will give Tolvaptan 15 mg today. monitor BMP q 4 hours. Jacinto catheter insertion to monitor output and also to r/o obstruction by prostate Monitor Input/Output, daily weights and renal function with basic metabolic panel will d/c metformin due to high creatinine. also consider to hold valsartan ( entresto) due to high K and ACE. also lower januvia dose due to decreased renal function. maintain hemodynamic stable will order urine studies as well Dose meds/antibiotics for reduced GFR. Avoid fleets enema/magnesium based laxatives. Avoid nephrotoxins/NSAIDs/ iodinated contrast (unless needed emergently) Further work up for as per primary team. discussed with team. d/w family bedside prognosis guarded. Thanks for allowing me to participate in care of your patient. Will follow patient with you. Please call if any Qs Dr Gino Magallanes Office: [phone] Subjective: Noted events overnight. Patients c/o SOB on exertion and lying down. also c/o leg swelling and decreased urine output.. Denies chest pain, palpitation Physical Examination: General Appearance: has mild tachypnoea, co-operative. Vitals reviewed and noted as below Lungs: Increased respiratory rate/effort. Breath sounds decreased at bases with crackles ++ Heart: Normal rate. s1s2 normal. No rub or gallop. Extremities: 2-3+ edema. Neurological: Patient is alert, awake and oriented to person, place and time. No focal deficit. Strength bilateral appropriate and equal Skin: Warm and dry. Normal turgor. No rash. Palpitation: Normal elasticity for age Abdomen: Abdomen is soft. Bowel sounds +. There is no abdominal tenderness, no guarding/rigidity or organomegaly : kidney not palpable. uncertain about bladder Labs/imaging reviewed. Past medical history, past surgical history, family history, social history, allergy reviewed and noted as below Sono: Rt kidney 8 cm and left kidney 1.3 cm cyst BNP 3990 urine Na <5 S somol 270 uric acid 5.1 alb 3.0 echo; moderate to severe . IVC collapses >50% with inspiration CT chest last year: hilar lung mass Objective - Vital Signs/Intake and Output Vital Signs (last 24 hours): Temp Pulse Resp BP Pulse Ox 97.6 F 75 18 95/60 L 95 07/01/16 12:25 07/01/16 12:25 07/01/16 12:25 07/01/16 12:25 07/01/16 12:25 - Medications Medications: Current Medications Acetaminophen (Tylenol 325mg Tab) 650 mg PO Q4 PRN PRN Reason: Pain, Mild (1-3) Last Admin: 06/29/16 18:46 Dose: 650 mg Allopurinol (Zyloprim) 100 mg PO DAILY [facility] Last Admin: 07/01/16 09:46 Dose: 100 mg Aspirin (Ecotrin) 81 mg PO DAILY [facility] Last Admin: 07/01/16 09:46 Dose: 81 mg Atorvastatin Calcium (Lipitor) 40 mg PO DAILY [facility] Last Admin: 07/01/16 09:46 Dose: 40 mg Enoxaparin Sodium (Lovenox) 30 mg SC DAILY [facility] PRN Reason: Protocol Last Admin: 07/01/16 09:47 Dose: 30 mg Ergocalciferol (Drisdol 50,000 Intl Units Cap) 1 cap PO SAT [facility] Last Admin: 06/28/16 09:50 Dose: 1 cap Home Med (Alfuzosin Hcl [Uroxatral]) 10 mg PO DAILY [facility] Last Admin: 07/01/16 09:47 Dose: 10 mg Home Med (Dutasteride [Avodart]) 0.5 mg PO DAILY [facility] Last Admin: 07/01/16 09:46 Dose: 0.5 mg Home Med (Ranolazine [Ranexa]) 500 mg PO Q12 [facility] Last Admin: 07/01/16 09:47 Dose: 500 mg Insulin Detemir (Levemir) 12 units SC HS [facility] Last Admin: 06/30/16 21:19 Dose: Not Given Levothyroxine Sodium (Synthroid) 88 mcg PO DAILY@0630 [facility] Last Admin: 07/01/16 09:14 Dose: Not Given Metoprolol Succinate (Toprol Xl) 100 mg PO DAILY [facility] Last Admin: 07/01/16 09:48 Dose: Not Given Multivitamins/Minerals (Therapeutic-M Tab) 1 tab PO DAILY [facility] Last Admin: 07/01/16 09:46 Dose: 1 tab Nitroglycerin (Nitrostat Sl Tab) 0.4 mg SL Q5M PRN PRN Reason: cp/dyspnea Repaglinide (Prandin) 4 mg PO TID [facility] Last Admin: 07/01/16 09:48 Dose: Not Given Sevelamer Carbonate (Renvela) 0.8 gm PO 1130,1700 [facility] Last Admin: 07/01/16 11:51 Dose: 0.8 gm Sitagliptin Phosphate (Januvia) 25 mg PO DAILY [facility] Last Admin: 07/01/16 10:50 Dose: 25 mg - Labs Labs: 07/01/16 06:05 07/01/16 06:05
[2016-07-01 15:39] LABS: CALCIUM 8.6 mg/dL (8.4-10.2); POTASSIUM 5.9 MMOL/L (3.6-5.0)
[2016-07-01] MEDS ORDERED: SODIUM CHLORIDE 3% IV SCH (18:44)
[2016-07-01] MEDS: Insulin Detemir 100 Units/ml Inj SC SCH (21:35)
[2016-07-02 01:39] LABS: CALCIUM 8.1 mg/dL (8.4-10.2); POTASSIUM 4.4 MMOL/L (3.6-5.0)
[2016-07-02] MEDS: Levothyroxine 88 MCG TAB PO SCH (06:13)
[2016-07-02 07:18] LABS: CALCIUM 7.9 mg/dL (8.4-10.2); POTASSIUM 3.9 MMOL/L (3.6-5.0)
--- NOTE | 2016-07-02 07:24 | CP.PCM.PN ---
Subjective - Date & Time of Evaluation Date of Evaluation: 07/02/16 Time of Evaluation: 07:24 - Subjective Subjective: pt doing well w/o complaints. no f/c, n/v/d. am labs noted. case d/c w/ son. will d/c w/ nephro this am. Objective - Vital Signs/Intake and Output Vital Signs (last 24 hours): Temp Pulse Resp BP Pulse Ox 97.6 F 78 18 99/61 L 96 07/02/16 04:51 07/02/16 04:51 07/02/16 04:51 07/02/16 04:51 07/02/16 04:51 Intake and Output: 07/02/16 07/02/16 06:59 18:59 Output Total 280 Balance -280 - Medications Medications: Current Medications Acetaminophen (Tylenol 325mg Tab) 650 mg PO Q4 PRN PRN Reason: Pain, Mild (1-3) Last Admin: 06/29/16 18:46 Dose: 650 mg Allopurinol (Zyloprim) 100 mg PO DAILY [facility] Last Admin: 07/01/16 09:46 Dose: 100 mg Aspirin (Ecotrin) 81 mg PO DAILY [facility] Last Admin: 07/01/16 09:46 Dose: 81 mg Atorvastatin Calcium (Lipitor) 40 mg PO DAILY [facility] Last Admin: 07/01/16 09:46 Dose: 40 mg Enoxaparin Sodium (Lovenox) 30 mg SC DAILY [facility] PRN Reason: Protocol Last Admin: 07/01/16 09:47 Dose: 30 mg Ergocalciferol (Drisdol 50,000 Intl Units Cap) 1 cap PO SAT [facility] Last Admin: 06/28/16 09:50 Dose: 1 cap Home Med (Alfuzosin Hcl [Uroxatral]) 10 mg PO DAILY [facility] Last Admin: 07/01/16 09:47 Dose: 10 mg Home Med (Dutasteride [Avodart]) 0.5 mg PO DAILY [facility] Last Admin: 07/01/16 09:46 Dose: 0.5 mg Home Med (Ranolazine [Ranexa]) 500 mg PO Q12 [facility] Last Admin: 07/01/16 09:47 Dose: 500 mg Sodium Chloride (Hypertonic Saline 3%) 750 mls @ 30 mls/hr IV .Q24H [facility] Stop: 07/02/16 18:44 Last Admin: 07/01/16 20:01 Dose: 30 mls/hr Insulin Detemir (Levemir) 12 units SC HS [facility] Last Admin: 07/01/16 21:35 Dose: Not Given Levothyroxine Sodium (Synthroid) 88 mcg PO DAILY@0630 [facility] Last Admin: 07/02/16 06:13 Dose: 88 mcg Metoprolol Succinate (Toprol Xl) 100 mg PO DAILY [facility] Last Admin: 07/01/16 09:48 Dose: Not Given Multivitamins/Minerals (Therapeutic-M Tab) 1 tab PO DAILY [facility] Last Admin: 07/01/16 09:46 Dose: 1 tab Nitroglycerin (Nitrostat Sl Tab) 0.4 mg SL Q5M PRN PRN Reason: cp/dyspnea Repaglinide (Prandin) 4 mg PO TID [facility] Last Admin: 07/01/16 18:08 Dose: Not Given Sevelamer Carbonate (Renvela) 0.8 gm PO 1130,1700 [facility] Last Admin: 07/01/16 18:09 Dose: 0.8 gm Sitagliptin Phosphate (Januvia) 25 mg PO DAILY [facility] Last Admin: 07/01/16 10:50 Dose: 25 mg - Labs Labs: 07/01/16 06:05 07/02/16 05:35 - Constitutional Appears: Well, Non-toxic, No Acute Distress - Head Exam Head Exam: ATRAUMATIC, NORMAL INSPECTION, NORMOCEPHALIC - Eye Exam Eye Exam: EOMI, Normal appearance, PERRL Pupil Exam: NORMAL ACCOMODATION, PERRL - ENT Exam ENT Exam: Mucous Membranes Moist, Normal Exam - Neck Exam Neck Exam: Full ROM, Normal Inspection. absent: Lymphadenopathy - Respiratory Exam Respiratory Exam: Clear to Ausculation Bilateral, NORMAL BREATHING PATTERN - Cardiovascular Exam Cardiovascular Exam: REGULAR RHYTHM, RRR, +S1, +S2. absent: Murmur - GI/Abdominal Exam GI & Abdominal Exam: Soft, Normal Bowel Sounds. absent: Tenderness - Extremities Exam Extremities Exam: Full ROM, Normal Capillary Refill, Normal Inspection. absent : Joint Swelling, Pedal Edema - Back Exam Back Exam: NORMAL INSPECTION - Neurological Exam Neurological Exam: Alert, Awake, CN II-XII Intact, Normal Gait, Oriented x3 - Psychiatric Exam Psychiatric exam: Normal Affect, Normal Mood - Skin Skin Exam: Dry, Intact, Normal Color, Warm Assessment and Plan (1) Acute on chronic systolic and diastolic heart failure, NYHA class 2 Status: Acute (2) DM2 (diabetes mellitus, type 2) Status: Acute (3) DVT prophylaxis Status: Acute - Assessment and Plan (Free Text) Assessment: (1) Acute on chronic systolic and diastolic heart failure, NYHA class 2 Assessment and Plan: cardio, gentle diuresis echo tele cleared by cardio Status: Acute (2) DM2 (diabetes mellitus, type 2) Assessment and Plan: riss, fsbg, home meds Status: Acute (3) DVT prophylaxis Assessment and Plan: scd and aehose, lovenox Status: Acute 4-hyponatremia/hyperkalemia-mckenzie r/t ckd, nephro, kayexalate, adjust dm2 meds , further oders per nephro[facility] galloway bmp and urine tests, on hypertonic saline. sodium 121
[2016-07-02] MEDS: Multivitamin With Minerals Tab PO SCH (08:27)
[2016-07-02] MEDS: Metoprolol Succinate 100 mg XL Tab PO SCH (08:29)
[2016-07-02] MEDS: Enoxaparin 30 mg Syringe SC SCH (08:32)
[2016-07-02 10:16] LABS: MICROALBUMIN 3.2 mg/dL (())
[2016-07-02 10:24] LABS: CHLORIDE URINE 17 mmol/L (32-290)
--- NOTE | 2016-07-02 10:47 | IP.NPCORE ---
Heart Failure Core Measure - Heart Failure Ejection Fraction: 40 % or Greater ROSANNE Inhibitor Prescribed: No Contraindication/Reason for not providing: hyperkalemia Beta-Hawa Prescribed: Metoprolol Succinate Implantable Cardioverter Defibrillator Therapy: Yes - Follow up Will be discharged to: Home
[2016-07-02 10:48] LABS: RBC URINE 269 /hpf (0-3); URINE BACTERIA OCC (<OCC); URINE BILIRUBIN NEGATIVE (NEGATIVE); URINE BLOOD LARGE (NEGATIVE); URINE COLOR AMBER (YELLOW); URINE GLUCOSE (UA) NEG (Normal); URINE KETONE NEGATIVE (NEGATIVE); URINE LEUKOCYTE ESTERASE NEG Leu/uL (Negative); URINE PROTEIN 100 mg/dL (NEGATIVE); URINE UROBILINOGEN 0.2-1.0 mg/dL (0.2-1.0); WBC URINE 13 /hpf (0-5)
[2016-07-02 11:35] LABS: CALCIUM 7.8 mg/dL (8.4-10.2); POTASSIUM 3.8 MMOL/L (3.6-5.0)
[2016-07-02] MEDS ORDERED: SODIUM CHLORIDE 3% IV SCH (11:35)
--- NOTE | 2016-07-02 11:42 | CP.PCM.PN ---
Subjective - Date & Time of Evaluation Date of Evaluation: 07/02/16 Time of Evaluation: 11:35 - Subjective Subjective: Follow up Nephrology note Assessment: Acute Kidney Injury likely hemodynamic due to pre-renal state (urine Na <5 which suggests intravasc volume depletion), cardiorenal syndrome as with CHF and moderate to severe : all together leading to likely acute tubular necrosis hypo-osmolar hypervolemic hyponatremia likely due to CHF and ? SIADH Hypotension, mild hyperkalemia Anemia, CHF, renal cysts, lung mass Plan No acute need for renal replacement therapy at this time. however if condition deteriorates further, may be clinically indicated. Had discussed with family and they are Uncertain about this, citing his overall poor health and age. continue with hypertonic saline @ 20 ml/hr and d/c once serum Na >123 today. consider resuming it tomorrow, monitor BMP q 4 hours. Marrero catheter insertion to monitor output Monitor Input/Output, daily weights and renal function with basic metabolic panel d/c metformin due to high creatinine. hold valsartan (entresto) due to high K and ACE. also lower januvia dose due to decreased renal function. maintain hemodynamic stable Dose meds/antibiotics for reduced eGFR <10. Avoid fleets enema/magnesium based laxatives. Avoid nephrotoxins/NSAIDs/ iodinated contrast (unless needed emergently) Further work up for as per primary team. discussed with team. prognosis guarded. Thanks for allowing me to participate in care of your patient. Will follow patient with you. Please call if any Qs Dr Gino Magallanes Office: [phone] Subjective: Noted events overnight. Patients feels better. SOB better. c/o leg swelling and decreased urine output. Denies chest pain, palpitation. made 280 mL urine yesterday night and has 200 mL urine in bag now overall some improvement since yesterday ? due to volume resus with hypertonic saline Physical Examination: General Appearance: appears comfortable sitting in chair, co-operative. Vitals reviewed and noted as below Lungs: Improved respiratory rate/effort. Breath sounds decreased at bases with crackles + Heart: Normal rate. s1s2 normal. No rub or gallop. Extremities: 2+ edema. Neurological: Patient is alert, awake and oriented to person, place and time. No focal deficit. Strength bilateral appropriate and equal Skin: Warm and dry. Normal turgor. No rash. Palpitation: Normal elasticity for age Abdomen: Abdomen is soft. Bowel sounds +. There is no abdominal tenderness, no guarding/rigidity or organomegaly : kidney not palpable. has marrero with debris in urine Labs/imaging reviewed. Past medical history, past surgical history, family history, social history, allergy reviewed and noted as below Sono: Rt kidney 8 cm and left kidney 1.3 cm cyst BNP 3990 urine Na <5 S somol 270 uric acid 5.1 alb 3.0 echo; moderate to severe . IVC collapses >50% with inspiration CT chest last year: hilar lung mass Objective - Vital Signs/Intake and Output Vital Signs (last 24 hours): Temp Pulse Resp BP Pulse Ox 97.6 F 79 18 98/58 L 98 07/02/16 09:00 07/02/16 09:00 07/02/16 09:00 07/02/16 09:00 07/02/16 09:00 Intake and Output: 07/02/16 07/02/16 06:59 18:59 Output Total 280 Balance -280 - Medications Medications: Current Medications Acetaminophen (Tylenol 325mg Tab) 650 mg PO Q4 PRN PRN Reason: Pain, Mild (1-3) Last Admin: 06/29/16 18:46 Dose: 650 mg Allopurinol (Zyloprim) 100 mg PO DAILY [facility] Last Admin: 07/02/16 08:29 Dose: 100 mg Aspirin (Ecotrin) 81 mg PO DAILY [facility] Last Admin: 07/02/16 11:07 Dose: 81 mg Atorvastatin Calcium (Lipitor) 40 mg PO DAILY [facility] Last Admin: 07/02/16 08:29 Dose: 40 mg Enoxaparin Sodium (Lovenox) 30 mg SC DAILY [facility] PRN Reason: Protocol Last Admin: 07/02/16 08:32 Dose: 30 mg Ergocalciferol (Drisdol 50,000 Intl Units Cap) 1 cap PO SAT [facility] Last Admin: 06/28/16 09:50 Dose: 1 cap Home Med (Alfuzosin Hcl [Uroxatral]) 10 mg PO DAILY [facility] Last Admin: 07/02/16 08:32 Dose: 10 mg Home Med (Dutasteride [Avodart]) 0.5 mg PO DAILY [facility] Last Admin: 07/02/16 08:32 Dose: 0.5 mg Home Med (Ranolazine [Ranexa]) 500 mg PO Q12 [facility] Last Admin: 07/02/16 08:28 Dose: 500 mg Sodium Chloride (Hypertonic Saline 3%) 750 mls @ 20 mls/hr IV .Q24H [facility] Stop: 07/02/16 18:44 Insulin Detemir (Levemir) 12 units SC HS [facility] Last Admin: 07/01/16 21:35 Dose: Not Given Levothyroxine Sodium (Synthroid) 88 mcg PO DAILY@0630 [facility] Last Admin: 07/02/16 06:13 Dose: 88 mcg Metoprolol Succinate (Toprol Xl) 100 mg PO DAILY [facility] Last Admin: 07/02/16 08:29 Dose: Not Given Multivitamins/Minerals (Therapeutic-M Tab) 1 tab PO DAILY [facility] Last Admin: 07/02/16 08:27 Dose: 1 tab Nitroglycerin (Nitrostat Sl Tab) 0.4 mg SL Q5M PRN PRN Reason: cp/dyspnea Repaglinide (Prandin) 4 mg PO TID [facility] Last Admin: 07/02/16 08:43 Dose: 4 mg Sevelamer Carbonate (Renvela) 0.8 gm PO 1130,1700 [facility] Last Admin: 07/01/16 18:09 Dose: 0.8 gm Sitagliptin Phosphate (Januvia) 25 mg PO DAILY [facility] Last Admin: 07/02/16 08:28 Dose: 25 mg - Labs Labs: 07/01/16 06:05 07/02/16 05:35
[2016-07-02] MEDS: Sevelamer Carb 0.8 gm/Packet PO SCH ×2 (11:52→18:04)
[2016-07-02 18:22] LABS: CALCIUM 7.6 mg/dL (8.4-10.2); POTASSIUM 3.8 MMOL/L (3.6-5.0)
[2016-07-02] MEDS ORDERED: Sodium Chloride 3% 500 ML IV SCH ×3 (20:14→22:09)
[2016-07-02 21:12] LABS: CALCIUM 7.5 mg/dL (8.4-10.2); POTASSIUM 3.7 MMOL/L (3.6-5.0)
[2016-07-02] MEDS: Insulin Detemir 100 Units/ml Inj SC SCH (22:00)
[2016-07-02] MEDS ORDERED: Dextrose 50% SYRINGE Inj (50 ml) IVP STA (22:40)
[2016-07-03] MEDS: Levothyroxine 88 MCG TAB PO SCH (05:37)
[2016-07-03 07:39] LABS: ALB/GLOB RATIO 1.1 (1.0-2.1); BILIRUBIN,TOTAL 0.6 mg/dl (0.2-1.3); CALCIUM 7.7 mg/dL (8.4-10.2); POTASSIUM 3.8 MMOL/L (3.6-5.0); TOTAL PROTEIN 6.8 G/DL (6.3-8.2)
[2016-07-03 07:42] LABS: BASO % 0.1 % (0.0-2.0); EOS # 0.1 K/uL (0.0-0.7); EOS % 0.8 % (0.0-4.0); HEMATOCRIT 28.1 % (35.0-51.0); LYMPH # 0.6 K/uL (1.0-4.3); LYMPH % 7.2 % (20.0-40.0); MEAN CELL VOLUME 91.1 fl (80.0-94.0); MEAN CORPUSCULAR HEMOGLOBIN 31.2 pg (27.0-31.0); MEAN CORPUSCULAR HGB CONC 34.3 g/dL (33.0-37.0); MEAN PLATELET VOLUME 8.4 fl (7.2-11.7); MONO # 1.3 K/uL (0.0-0.8); MONO % 15.3 % (0.0-10.0); NEUT # 6.7 K/uL (1.8-7.0); NEUT % 76.6 % (50.0-75.0); PLATELET COUNT 259 K/uL (130-400); RED CELL DISTRIBUTION WIDTH 13.1 % (11.5-14.5); WHITE BLOOD COUNT 8.7 K/uL (4.8-10.8)
[2016-07-03 08:37] LABS: MICROALBUMIN 60.6 mg/dL
--- NOTE | 2016-07-03 08:38 | CP.PCM.PN ---
Subjective - Date & Time of Evaluation Date of Evaluation: 07/03/16 Time of Evaluation: 08:35 - Subjective Subjective: pt sitting in chair, states is only comforatble sitting in chiar. no f/c, n/v/ d. bw noted. na 121. bun/cr noted. case d/c w/ son and dr condon. ?? need for xfer to [facility] for aortic valve surgery Objective - Vital Signs/Intake and Output Vital Signs (last 24 hours): Temp Pulse Resp BP Pulse Ox 97.5 F L 88 18 105/63 100 07/03/16 05:00 07/03/16 05:00 07/03/16 05:00 07/03/16 05:00 07/03/16 05:00 Intake and Output: 07/03/16 07/03/16 06:59 18:59 Intake Total 380 Output Total 350 Balance 30 - Medications Medications: Current Medications Acetaminophen (Tylenol 325mg Tab) 650 mg PO Q4 PRN PRN Reason: Pain, Mild (1-3) Last Admin: 06/29/16 18:46 Dose: 650 mg Allopurinol (Zyloprim) 100 mg PO DAILY [facility] Last Admin: 07/02/16 08:29 Dose: 100 mg Aspirin (Ecotrin) 81 mg PO DAILY [facility] Last Admin: 07/02/16 11:07 Dose: 81 mg Atorvastatin Calcium (Lipitor) 40 mg PO DAILY [facility] Last Admin: 07/02/16 08:29 Dose: 40 mg Enoxaparin Sodium (Lovenox) 30 mg SC DAILY [facility] PRN Reason: Protocol Last Admin: 07/02/16 08:32 Dose: 30 mg Ergocalciferol (Drisdol 50,000 Intl Units Cap) 1 cap PO SAT [facility] Last Admin: 06/28/16 09:50 Dose: 1 cap Home Med (Alfuzosin Hcl [Uroxatral]) 10 mg PO DAILY [facility] Last Admin: 07/02/16 08:32 Dose: 10 mg Home Med (Dutasteride [Avodart]) 0.5 mg PO DAILY [facility] Last Admin: 07/02/16 08:32 Dose: 0.5 mg Home Med (Ranolazine [Ranexa]) 500 mg PO Q12 [facility] Last Admin: 07/02/16 21:27 Dose: 500 mg Sodium Chloride (Hypertonic Saline 3%) 500 mls @ 15 mls/hr IV .Q24H [facility] Stop: 07/03/16 22:06 Last Admin: 07/02/16 22:10 Dose: 15 mls/hr Insulin Detemir (Levemir) 12 units SC HS [facility] Last Admin: 07/02/16 22:00 Dose: Not Given Levothyroxine Sodium (Synthroid) 88 mcg PO DAILY@0630 [facility] Last Admin: 07/03/16 05:37 Dose: 88 mcg Metoprolol Succinate (Toprol Xl) 100 mg PO DAILY [facility] Last Admin: 07/02/16 08:29 Dose: Not Given Multivitamins/Minerals (Therapeutic-M Tab) 1 tab PO DAILY [facility] Last Admin: 07/02/16 08:27 Dose: 1 tab Nitroglycerin (Nitrostat Sl Tab) 0.4 mg SL Q5M PRN PRN Reason: cp/dyspnea Repaglinide (Prandin) 4 mg PO TID [facility] Last Admin: 07/02/16 16:02 Dose: Not Given Sevelamer Carbonate (Renvela) 0.8 gm PO 1130,1700 [facility] Last Admin: 07/02/16 18:04 Dose: 0.8 gm Sitagliptin Phosphate (Januvia) 25 mg PO DAILY [facility] Last Admin: 07/02/16 08:28 Dose: 25 mg - Labs Labs: 07/03/16 05:40 07/03/16 05:40 - Constitutional Appears: Well, Non-toxic, No Acute Distress - Head Exam Head Exam: ATRAUMATIC, NORMAL INSPECTION, NORMOCEPHALIC - Eye Exam Eye Exam: EOMI, Normal appearance, PERRL Pupil Exam: NORMAL ACCOMODATION, PERRL - ENT Exam ENT Exam: Mucous Membranes Moist, Normal Exam - Neck Exam Neck Exam: Full ROM, Normal Inspection. absent: Lymphadenopathy - Respiratory Exam Respiratory Exam: Clear to Ausculation Bilateral, NORMAL BREATHING PATTERN - Cardiovascular Exam Cardiovascular Exam: REGULAR RHYTHM, +S1, +S2. absent: Murmur - GI/Abdominal Exam GI & Abdominal Exam: Soft, Normal Bowel Sounds. absent: Tenderness - Extremities Exam Extremities Exam: Full ROM, Normal Capillary Refill, Normal Inspection. absent : Joint Swelling, Pedal Edema - Back Exam Back Exam: NORMAL INSPECTION - Neurological Exam Neurological Exam: Alert, Awake, CN II-XII Intact, Normal Gait, Oriented x3 - Psychiatric Exam Psychiatric exam: Normal Affect, Normal Mood - Skin Skin Exam: Dry, Intact, Normal Color, Warm Assessment and Plan (1) Acute on chronic systolic and diastolic heart failure, NYHA class 2 Status: Acute (2) DM2 (diabetes mellitus, type 2) Status: Acute (3) DVT prophylaxis Status: Acute - Assessment and Plan (Free Text) Assessment: (1) Acute on chronic systolic and diastolic heart failure, NYHA class 2 Assessment and Plan: cardio, gentle diuresis echo tele incr dyspnea, ?? need for as valvular surgery Status: Acute (2) DM2 (diabetes mellitus, type 2) Assessment and Plan: riss, fsbg, home meds Status: Acute (3) DVT prophylaxis Assessment and Plan: scd and aehose, lovenox Status: Acute 4-hyponatremia/hyperkalemia-mckenzie r/t ckd, nephro, kayexalate, adjust dm2 meds , further oders per nephro, montiro bmp and urine tests, on hypertonic saline. sodium 121
[2016-07-03] MEDS: Metoprolol Succinate 100 mg XL Tab PO SCH (09:38)
[2016-07-03] MEDS: Multivitamin With Minerals Tab PO SCH (09:39)
[2016-07-03] MEDS: Enoxaparin 30 mg Syringe SC SCH (09:39)
[2016-07-03 10:33] LABS: EOSINOPHIL 1 % (0-7); NEUTROPHIL 77 % (42-75); TOTAL CELLS COUNTED 100
[2016-07-03 10:35] LABS: LARGE PLATELETS PRESENT
--- NOTE | 2016-07-03 11:35 | CP.PCM.PN ---
Subjective - Date & Time of Evaluation Date of Evaluation: 07/03/16 Time of Evaluation: 11:15 - Subjective Subjective: Pt c/o sob. Feels better sitting up in chair Breathing gets worse whwn he is lying in bed No c/o dizziness, headache Objective - Vital Signs/Intake and Output Vital Signs (last 24 hours): Temp Pulse Resp BP Pulse Ox 97.8 F 96 H 18 124/69 94 L 07/03/16 09:10 07/03/16 09:38 07/03/16 09:10 07/03/16 09:38 07/03/16 09:10 Intake and Output: 07/03/16 07/03/16 06:59 18:59 Intake Total 380 Output Total 350 Balance 30 - Medications Medications: Current Medications Acetaminophen (Tylenol 325mg Tab) 650 mg PO Q4 PRN PRN Reason: Pain, Mild (1-3) Last Admin: 06/29/16 18:46 Dose: 650 mg Allopurinol (Zyloprim) 100 mg PO DAILY [facility] Last Admin: 07/03/16 09:37 Dose: 100 mg Aspirin (Ecotrin) 81 mg PO DAILY [facility] Last Admin: 07/03/16 09:36 Dose: 81 mg Atorvastatin Calcium (Lipitor) 40 mg PO DAILY [facility] Last Admin: 07/03/16 09:38 Dose: 40 mg Enoxaparin Sodium (Lovenox) 30 mg SC DAILY [facility] PRN Reason: Protocol Last Admin: 07/03/16 09:39 Dose: 30 mg Ergocalciferol (Drisdol 50,000 Intl Units Cap) 1 cap PO SAT [facility] Last Admin: 06/28/16 09:50 Dose: 1 cap Furosemide (Lasix) 40 mg IV ONCE ONE Stop: 07/04/16 11:27 Home Med (Alfuzosin Hcl [Uroxatral]) 10 mg PO DAILY [facility] Last Admin: 07/03/16 09:36 Dose: 10 mg Home Med (Dutasteride [Avodart]) 0.5 mg PO DAILY [facility] Last Admin: 07/03/16 09:36 Dose: 0.5 mg Home Med (Ranolazine [Ranexa]) 500 mg PO Q12 [facility] Last Admin: 07/03/16 09:39 Dose: 500 mg Sodium Chloride (Hypertonic Saline 3%) 500 mls @ 15 mls/hr IV .Q24H [facility] Stop: 07/03/16 22:06 Last Admin: 07/02/16 22:10 Dose: 15 mls/hr Insulin Detemir (Levemir) 12 units SC HS [facility] Last Admin: 07/02/16 22:00 Dose: Not Given Levothyroxine Sodium (Synthroid) 88 mcg PO DAILY@0630 [facility] Last Admin: 07/03/16 05:37 Dose: 88 mcg Metoprolol Succinate (Toprol Xl) 100 mg PO DAILY [facility] Last Admin: 07/03/16 09:38 Dose: 100 mg Multivitamins/Minerals (Therapeutic-M Tab) 1 tab PO DAILY [facility] Last Admin: 07/03/16 09:39 Dose: 1 tab Nitroglycerin (Nitrostat Sl Tab) 0.4 mg SL Q5M PRN PRN Reason: cp/dyspnea Repaglinide (Prandin) 4 mg PO TID [facility] Last Admin: 07/03/16 09:39 Dose: Not Given Sevelamer Carbonate (Renvela) 0.8 gm PO 1130,1700 [facility] Last Admin: 07/02/16 18:04 Dose: 0.8 gm Sitagliptin Phosphate (Januvia) 25 mg PO DAILY [facility] Last Admin: 07/03/16 09:37 Dose: 25 mg - Labs Labs: 07/03/16 05:40 07/03/16 05:40 - Eye Exam Eye Exam: Conjunctival injection - Neck Exam Neck Exam: Normal Inspection - Respiratory Exam Additional comments: B/L crackles @ bases - Cardiovascular Exam Cardiovascular Exam: REGULAR RHYTHM - GI/Abdominal Exam GI & Abdominal Exam: Firm Additional comments: No tenderness - Extremities Exam Additional comments: B/L pedal edema. Rt > Lt Assessment and Plan - Assessment and Plan (Free Text) Assessment: Hyponatremia. serum sod. is slightly improved. Currently on hypertonic saline CHF Acute on CRF Creatinine is improving Plan: Suggest IV lasix 40 mg today. Repeat BMP in afternoon Monitor serum sodium closely Monitor renal function
[2016-07-03] MEDS: Sevelamer Carb 0.8 gm/Packet PO SCH ×2 (12:06→16:45)
[2016-07-03 17:12] LABS: CALCIUM 7.8 mg/dL (8.4-10.2); POTASSIUM 4.6 MMOL/L (3.6-5.0)
--- NOTE | 2016-07-03 20:29 | CP.PCM.PN ---
Subjective - Date & Time of Evaluation Date of Evaluation: 07/03/16 Time of Evaluation: 20:00 - Subjective Subjective: patient has dyspnea at rest. has been followed by renal for increasing creatinine. Baseline creat of 1.6, now above 2.6. urine collection in progress. Objective - Vital Signs/Intake and Output Vital Signs (last 24 hours): Temp Pulse Resp BP Pulse Ox 97.4 F L 76 20 103/64 99 07/03/16 19:18 07/03/16 19:18 07/03/16 19:18 07/03/16 19:18 07/03/16 19:18 Intake and Output: 07/03/16 07/04/16 18:59 06:59 Intake Total 1185 Output Total 900 Balance 285 - Medications Medications: Current Medications Acetaminophen (Tylenol 325mg Tab) 650 mg PO Q4 PRN PRN Reason: Pain, Mild (1-3) Last Admin: 06/29/16 18:46 Dose: 650 mg Allopurinol (Zyloprim) 100 mg PO DAILY [facility] Last Admin: 07/03/16 09:37 Dose: 100 mg Aspirin (Ecotrin) 81 mg PO DAILY [facility] Last Admin: 07/03/16 09:36 Dose: 81 mg Atorvastatin Calcium (Lipitor) 40 mg PO DAILY [facility] Last Admin: 07/03/16 09:38 Dose: 40 mg Enoxaparin Sodium (Lovenox) 30 mg SC DAILY [facility] PRN Reason: Protocol Last Admin: 07/03/16 09:39 Dose: 30 mg Ergocalciferol (Drisdol 50,000 Intl Units Cap) 1 cap PO SAT [facility] Last Admin: 06/28/16 09:50 Dose: 1 cap Home Med (Alfuzosin Hcl [Uroxatral]) 10 mg PO DAILY [facility] Last Admin: 07/03/16 09:36 Dose: 10 mg Home Med (Dutasteride [Avodart]) 0.5 mg PO DAILY [facility] Last Admin: 07/03/16 09:36 Dose: 0.5 mg Home Med (Ranolazine [Ranexa]) 500 mg PO Q12 [facility] Last Admin: 07/03/16 09:39 Dose: 500 mg Insulin Detemir (Levemir) 12 units SC HS [facility] Last Admin: 07/02/16 22:00 Dose: Not Given Levothyroxine Sodium (Synthroid) 88 mcg PO DAILY@0630 [facility] Last Admin: 07/03/16 05:37 Dose: 88 mcg Metoprolol Succinate (Toprol Xl) 100 mg PO DAILY [facility] Last Admin: 07/03/16 09:38 Dose: 100 mg Multivitamins/Minerals (Therapeutic-M Tab) 1 tab PO DAILY [facility] Last Admin: 07/03/16 09:39 Dose: 1 tab Nitroglycerin (Nitrostat Sl Tab) 0.4 mg SL Q5M PRN PRN Reason: cp/dyspnea Repaglinide (Prandin) 4 mg PO TID [facility] Last Admin: 07/03/16 16:45 Dose: 4 mg Sevelamer Carbonate (Renvela) 0.8 gm PO 1130,1700 [facility] Last Admin: 07/03/16 16:45 Dose: 0.8 gm Sitagliptin Phosphate (Januvia) 25 mg PO DAILY [facility] Last Admin: 07/03/16 09:37 Dose: 25 mg - Labs Labs: 07/03/16 05:40 07/03/16 16:40 - Constitutional Appears: Non-toxic - Head Exam Head Exam: NORMAL INSPECTION - Eye Exam Eye Exam: Normal appearance - ENT Exam ENT Exam: Mucous Membranes Moist - Neck Exam Neck Exam: Full ROM - Respiratory Exam Respiratory Exam: Decreased Breath Sounds - Cardiovascular Exam Cardiovascular Exam: REGULAR RHYTHM, Murmur Additional comments: crescendo systolic - GI/Abdominal Exam GI & Abdominal Exam: Normal Bowel Sounds - Rectal Exam Rectal Exam: Deferred - Extremities Exam Extremities Exam: Pedal Edema - Back Exam Back Exam: NORMAL INSPECTION - Neurological Exam Neurological Exam: Alert - Psychiatric Exam Psychiatric exam: Normal Affect - Skin Skin Exam: Normal Color Assessment and Plan (1) Acute on chronic systolic and diastolic heart failure, NYHA class 2 Assessment & Plan: progressively worse. will likely need diuresis however with rising creatinine, likely in acute on chronic renal failure. The calcified severe aortic stenosis is contirbuting t the current clinical picture. Status: Acute (2) CAD (coronary artery disease) Assessment & Plan: history of CABG. no current angina. Any evaluation of aortic valve will require contrast and worsening renal function. although son wants patient to go to [place], will need discussion of expectations and potential need for dialysis. Status: Acute (3) DM2 (diabetes mellitus, type 2) Status: Acute (4) Aortic stenosis Assessment & Plan: severe. TAVR may be an option, but there are inherent risks. will continue to monitor. Status: Acute
[2016-07-03] MEDS: Insulin Detemir 100 Units/ml Inj SC SCH (22:18)
[2016-07-04] MEDS: Levothyroxine 88 MCG TAB PO SCH (06:43)
--- NOTE | 2016-07-04 07:43 | CP.PCM.PN ---
Subjective - Date & Time of Evaluation Date of Evaluation: 07/04/16 Time of Evaluation: 07:43 - Subjective Subjective: pt comfortable sitting up in bed. no cp. still w/ some dyspnea. pending xfer to [facility]. pt/family want dialysis/ aortic valve replacement. lungs clr, edema noted Objective - Vital Signs/Intake and Output Vital Signs (last 24 hours): Temp Pulse Resp BP Pulse Ox 97.1 F L 75 16 111/63 99 07/04/16 05:35 07/04/16 05:35 07/04/16 05:35 07/04/16 05:35 07/04/16 05:35 Intake and Output: 07/04/16 07/04/16 06:59 18:59 Intake Total 240 Output Total 650 Balance -410 - Medications Medications: Current Medications Acetaminophen (Tylenol 325mg Tab) 650 mg PO Q4 PRN PRN Reason: Pain, Mild (1-3) Last Admin: 06/29/16 18:46 Dose: 650 mg Allopurinol (Zyloprim) 100 mg PO DAILY [facility] Last Admin: 07/03/16 09:37 Dose: 100 mg Aspirin (Ecotrin) 81 mg PO DAILY [facility] Last Admin: 07/03/16 09:36 Dose: 81 mg Atorvastatin Calcium (Lipitor) 40 mg PO DAILY [facility] Last Admin: 07/03/16 09:38 Dose: 40 mg Enoxaparin Sodium (Lovenox) 30 mg SC DAILY [facility] PRN Reason: Protocol Last Admin: 07/03/16 09:39 Dose: 30 mg Ergocalciferol (Drisdol 50,000 Intl Units Cap) 1 cap PO SAT [facility] Last Admin: 06/28/16 09:50 Dose: 1 cap Home Med (Alfuzosin Hcl [Uroxatral]) 10 mg PO DAILY [facility] Last Admin: 07/03/16 09:36 Dose: 10 mg Home Med (Dutasteride [Avodart]) 0.5 mg PO DAILY [facility] Last Admin: 07/03/16 09:36 Dose: 0.5 mg Home Med (Ranolazine [Ranexa]) 500 mg PO Q12 [facility] Last Admin: 07/03/16 22:00 Dose: 500 mg Insulin Detemir (Levemir) 12 units SC HS [facility] Last Admin: 07/03/16 22:18 Dose: 12 unit Levothyroxine Sodium (Synthroid) 88 mcg PO DAILY@0630 [facility] Last Admin: 07/04/16 06:43 Dose: 88 mcg Metoprolol Succinate (Toprol Xl) 100 mg PO DAILY [facility] Last Admin: 07/03/16 09:38 Dose: 100 mg Multivitamins/Minerals (Therapeutic-M Tab) 1 tab PO DAILY [facility] Last Admin: 07/03/16 09:39 Dose: 1 tab Nitroglycerin (Nitrostat Sl Tab) 0.4 mg SL Q5M PRN PRN Reason: cp/dyspnea Repaglinide (Prandin) 4 mg PO TID [facility] Last Admin: 07/03/16 16:45 Dose: 4 mg Sevelamer Carbonate (Renvela) 0.8 gm PO 1130,1700 [facility] Last Admin: 07/03/16 16:45 Dose: 0.8 gm Sitagliptin Phosphate (Januvia) 25 mg PO DAILY [facility] Last Admin: 07/03/16 09:37 Dose: 25 mg - Labs Labs: 07/03/16 05:40 07/03/16 16:40 - Constitutional Appears: Well, Non-toxic, No Acute Distress - Head Exam Head Exam: ATRAUMATIC, NORMAL INSPECTION, NORMOCEPHALIC - Eye Exam Eye Exam: EOMI, Normal appearance, PERRL Pupil Exam: NORMAL ACCOMODATION, PERRL - ENT Exam ENT Exam: Mucous Membranes Moist, Normal Exam - Neck Exam Neck Exam: Full ROM, Normal Inspection. absent: Lymphadenopathy - Respiratory Exam Respiratory Exam: Clear to Ausculation Bilateral, NORMAL BREATHING PATTERN - Cardiovascular Exam Cardiovascular Exam: REGULAR RHYTHM, RRR, +S1, +S2. absent: Murmur - GI/Abdominal Exam GI & Abdominal Exam: Soft, Normal Bowel Sounds. absent: Tenderness - Extremities Exam Extremities Exam: Full ROM, Normal Capillary Refill, Normal Inspection. absent : Joint Swelling, Pedal Edema - Back Exam Back Exam: NORMAL INSPECTION - Neurological Exam Neurological Exam: Alert, Awake, CN II-XII Intact, Normal Gait, Oriented x3 - Psychiatric Exam Psychiatric exam: Normal Affect, Normal Mood - Skin Skin Exam: Dry, Intact, Normal Color, Warm Assessment and Plan (1) Acute on chronic systolic and diastolic heart failure, NYHA class 2 Status: Acute (2) DM2 (diabetes mellitus, type 2) Status: Acute (3) DVT prophylaxis Status: Acute - Assessment and Plan (Free Text) Assessment: (1) Acute on chronic systolic and diastolic heart failure, NYHA class 2 Assessment and Plan: cardio, gentle diuresis echo tele incr dyspnea, ?? need for as valvular surgery [facility] transfer pending Status: Acute (2) DM2 (diabetes mellitus, type 2) Assessment and Plan: riss, fsbg, home meds Status: Acute (3) DVT prophylaxis Assessment and Plan: scd and aehose, lovenox Status: Acute 4-hyponatremia/hyperkalemia-mckenzie r/t ckd, nephro, kayexalate, adjust dm2 meds , further oders per nephro, roosevelt bmp and urine tests, on hypertonic saline. ? ? dialysis [id number], ?? dialysis
[2016-07-04] MEDS: Multivitamin With Minerals Tab PO SCH (09:30)
[2016-07-04] MEDS: Enoxaparin 30 mg Syringe SC SCH (09:32)
[2016-07-04] MEDS: Metoprolol Succinate 100 mg XL Tab PO SCH (10:33)
[2016-07-04] MEDS: Sevelamer Carb 0.8 gm/Packet PO SCH ×2 (10:33→17:37)
--- NOTE | 2016-07-04 10:46 | CP.PCM.PN ---
Subjective - Date & Time of Evaluation Date of Evaluation: 07/04/16 Time of Evaluation: 10:30 - Subjective Subjective: Feels much better today Color is good Pt states that he slept well & ate well Objective - Vital Signs/Intake and Output Vital Signs (last 24 hours): Temp Pulse Resp BP Pulse Ox 97.5 F L 77 20 109/66 99 07/04/16 07:42 07/04/16 07:42 07/04/16 07:42 07/04/16 07:42 07/04/16 07:42 Intake and Output: 07/04/16 07/04/16 06:59 18:59 Intake Total 240 Output Total 650 Balance -410 - Medications Medications: Current Medications Acetaminophen (Tylenol 325mg Tab) 650 mg PO Q4 PRN PRN Reason: Pain, Mild (1-3) Last Admin: 06/29/16 18:46 Dose: 650 mg Allopurinol (Zyloprim) 100 mg PO DAILY [facility] Last Admin: 07/04/16 09:34 Dose: 100 mg Aspirin (Ecotrin) 81 mg PO DAILY [facility] Last Admin: 07/04/16 09:30 Dose: 81 mg Atorvastatin Calcium (Lipitor) 40 mg PO DAILY [facility] Last Admin: 07/04/16 09:31 Dose: 40 mg Enoxaparin Sodium (Lovenox) 30 mg SC DAILY [facility] PRN Reason: Protocol Last Admin: 07/04/16 09:32 Dose: 30 mg Ergocalciferol (Drisdol 50,000 Intl Units Cap) 1 cap PO SAT [facility] Last Admin: 06/28/16 09:50 Dose: 1 cap Home Med (Alfuzosin Hcl [Uroxatral]) 10 mg PO DAILY [facility] Last Admin: 07/04/16 09:33 Dose: 10 mg Home Med (Dutasteride [Avodart]) 0.5 mg PO DAILY [facility] Last Admin: 07/04/16 09:31 Dose: 0.5 mg Home Med (Ranolazine [Ranexa]) 500 mg PO Q12 [facility] Last Admin: 07/04/16 09:31 Dose: 500 mg Insulin Detemir (Levemir) 12 units SC HS [facility] Last Admin: 07/03/16 22:18 Dose: 12 unit Levothyroxine Sodium (Synthroid) 88 mcg PO DAILY@0630 [facility] Last Admin: 07/04/16 06:43 Dose: 88 mcg Metoprolol Succinate (Toprol Xl) 100 mg PO DAILY [facility] Last Admin: 07/04/16 10:33 Dose: Not Given Multivitamins/Minerals (Therapeutic-M Tab) 1 tab PO DAILY [facility] Last Admin: 07/04/16 09:30 Dose: 1 tab Nitroglycerin (Nitrostat Sl Tab) 0.4 mg SL Q5M PRN PRN Reason: cp/dyspnea Repaglinide (Prandin) 4 mg PO TID [facility] Last Admin: 07/04/16 10:34 Dose: Not Given Sevelamer Carbonate (Renvela) 0.8 gm PO 1130,1700 [facility] Last Admin: 07/04/16 10:33 Dose: 0.8 gm Sitagliptin Phosphate (Januvia) 25 mg PO DAILY [facility] Last Admin: 07/04/16 09:34 Dose: 25 mg - Labs Labs: 07/03/16 05:40 07/03/16 16:40 - Respiratory Exam Additional comments: Lungs clear - Cardiovascular Exam Cardiovascular Exam: REGULAR RHYTHM - Extremities Exam Additional comments: Some decrease in pedal edema Assessment and Plan - Assessment and Plan (Free Text) Assessment: Acute n chronic renal failure improving Hyponatremia ( dilutional) due to fluid overload Pt diuresed well after IV lasix CHF DM Plan: Awaiting todays lab results After reviewing labs, will order IV lasix If sodium remains low will consider Tolvaptan at a higher dose
[2016-07-04 10:47] LABS: BASO % 0.6 % (0.0-2.0); EOS % 0.4 % (0.0-4.0); HEMATOCRIT 28.1 % (35.0-51.0); LYMPH # 0.6 K/uL (1.0-4.3); LYMPH % 6.7 % (20.0-40.0); MEAN CELL VOLUME 91.4 fl (80.0-94.0); MEAN CORPUSCULAR HGB CONC 33.9 g/dL (33.0-37.0); MONO % 11.7 % (0.0-10.0); NEUT # 6.9 K/uL (1.8-7.0); NEUT % 80.6 % (50.0-75.0); RED CELL DISTRIBUTION WIDTH 13.2 % (11.5-14.5); WHITE BLOOD COUNT 8.5 K/uL (4.8-10.8)
[2016-07-04 10:54] LABS: CALCIUM 7.9 mg/dL (8.4-10.2); POTASSIUM 4.2 MMOL/L (3.6-5.0)
[2016-07-04 15:04] LABS: CALCIUM 7.9 mg/dL (8.4-10.2); POTASSIUM 4.3 MMOL/L (3.6-5.0)
--- NOTE | 2016-07-04 19:46 | CP.PCM.PN ---
Subjective - Date & Time of Evaluation Date of Evaluation: 07/04/16 Time of Evaluation: 19:40 - Subjective Subjective: patient feels somewhat improved. Objective - Vital Signs/Intake and Output Vital Signs (last 24 hours): Temp Pulse Resp BP Pulse Ox 97.6 F 86 20 116/70 99 07/04/16 15:47 07/04/16 15:47 07/04/16 15:47 07/04/16 15:47 07/04/16 15:47 - Medications Medications: Current Medications Acetaminophen (Tylenol 325mg Tab) 650 mg PO Q4 PRN PRN Reason: Pain, Mild (1-3) Last Admin: 06/29/16 18:46 Dose: 650 mg Allopurinol (Zyloprim) 100 mg PO DAILY [facility] Last Admin: 07/04/16 09:34 Dose: 100 mg Aspirin (Ecotrin) 81 mg PO DAILY [facility] Last Admin: 07/04/16 09:30 Dose: 81 mg Atorvastatin Calcium (Lipitor) 40 mg PO DAILY [facility] Last Admin: 07/04/16 09:31 Dose: 40 mg Enoxaparin Sodium (Lovenox) 30 mg SC DAILY [facility] PRN Reason: Protocol Last Admin: 07/04/16 09:32 Dose: 30 mg Ergocalciferol (Drisdol 50,000 Intl Units Cap) 1 cap PO SAT [facility] Last Admin: 06/28/16 09:50 Dose: 1 cap Home Med (Alfuzosin Hcl [Uroxatral]) 10 mg PO DAILY [facility] Last Admin: 07/04/16 09:33 Dose: 10 mg Home Med (Dutasteride [Avodart]) 0.5 mg PO DAILY [facility] Last Admin: 07/04/16 09:31 Dose: 0.5 mg Home Med (Ranolazine [Ranexa]) 500 mg PO Q12 [facility] Last Admin: 07/04/16 09:31 Dose: 500 mg Insulin Detemir (Levemir) 12 units SC HS [facility] Last Admin: 07/03/16 22:18 Dose: 12 unit Levothyroxine Sodium (Synthroid) 88 mcg PO DAILY@0630 [facility] Last Admin: 07/04/16 06:43 Dose: 88 mcg Metoprolol Succinate (Toprol Xl) 100 mg PO DAILY [facility] Last Admin: 07/04/16 10:33 Dose: Not Given Multivitamins/Minerals (Therapeutic-M Tab) 1 tab PO DAILY [facility] Last Admin: 07/04/16 09:30 Dose: 1 tab Nitroglycerin (Nitrostat Sl Tab) 0.4 mg SL Q5M PRN PRN Reason: cp/dyspnea Repaglinide (Prandin) 4 mg PO TID [facility] Last Admin: 07/04/16 17:37 Dose: 4 mg Sevelamer Carbonate (Renvela) 0.8 gm PO 1130,1700 [facility] Last Admin: 07/04/16 17:37 Dose: 0.8 gm Sitagliptin Phosphate (Januvia) 25 mg PO DAILY [facility] Last Admin: 07/04/16 09:34 Dose: 25 mg - Labs Labs: 07/04/16 10:30 07/04/16 14:50 - Constitutional Appears: Non-toxic - Head Exam Head Exam: NORMAL INSPECTION - Eye Exam Eye Exam: Normal appearance - ENT Exam ENT Exam: Mucous Membranes Moist - Neck Exam Neck Exam: Full ROM - Respiratory Exam Respiratory Exam: Decreased Breath Sounds - Cardiovascular Exam Cardiovascular Exam: REGULAR RHYTHM, Murmur - GI/Abdominal Exam GI & Abdominal Exam: Normal Bowel Sounds - Rectal Exam Rectal Exam: Deferred - Extremities Exam Extremities Exam: Pedal Edema - Back Exam Back Exam: NORMAL INSPECTION - Neurological Exam Neurological Exam: Alert - Psychiatric Exam Psychiatric exam: Normal Affect - Skin Skin Exam: Normal Color Assessment and Plan (1) Acute on chronic systolic and diastolic heart failure, NYHA class 2 Assessment & Plan: treatment is hampered by hyponatremia and acute on chronic renal failure. recommend diuresis. can consider use of Samsca (if on formulary) Status: Acute (2) CAD (coronary artery disease) Assessment & Plan: no current angina Status: Acute (3) DM2 (diabetes mellitus, type 2) Assessment & Plan: blood sugar control Status: Acute (4) Aortic stenosis Assessment & Plan: can consider evaluation for AVR. The patient has sngnifcant risk due to hypervolemia and renal failure. As per the family's wish, they wish for patient to be transferred to [place]. I have discussed risks associated with angiography and AVR. Status: Acute (5) Hyponatremia Assessment & Plan: renal following. likley due to volume overload. Status: Acute
[2016-07-04] MEDS: Insulin Detemir 100 Units/ml Inj SC SCH (21:31)
[2016-07-05] MEDS: Levothyroxine 88 MCG TAB PO SCH (06:54)
--- NOTE | 2016-07-05 08:33 | CP.PCM.PN ---
Subjective - Date & Time of Evaluation Date of Evaluation: 07/05/16 Time of Evaluation: 08:31 - Subjective Subjective: no complaints/distress. no f/c, n/v/d. pending xfer to [facility] tomorrow. no dyspnea hwen sitting up in chair. am labs pending. lasix givne yesterday. less edema. Objective - Vital Signs/Intake and Output Vital Signs (last 24 hours): Temp Pulse Resp BP Pulse Ox 97.5 F L 85 18 115/64 100 07/05/16 07:54 07/05/16 07:54 07/05/16 07:54 07/05/16 07:54 07/05/16 07:54 Intake and Output: 07/05/16 07/05/16 06:59 18:59 Intake Total 480 Output Total 1950 Balance -1470 - Medications Medications: Current Medications Acetaminophen (Tylenol 325mg Tab) 650 mg PO Q4 PRN PRN Reason: Pain, Mild (1-3) Last Admin: 06/29/16 18:46 Dose: 650 mg Allopurinol (Zyloprim) 100 mg PO DAILY [facility] Last Admin: 07/04/16 09:34 Dose: 100 mg Aspirin (Ecotrin) 81 mg PO DAILY [facility] Last Admin: 07/04/16 09:30 Dose: 81 mg Atorvastatin Calcium (Lipitor) 40 mg PO DAILY [facility] Last Admin: 07/04/16 09:31 Dose: 40 mg Enoxaparin Sodium (Lovenox) 30 mg SC DAILY [facility] PRN Reason: Protocol Last Admin: 07/04/16 09:32 Dose: 30 mg Ergocalciferol (Drisdol 50,000 Intl Units Cap) 1 cap PO SAT [facility] Last Admin: 06/28/16 09:50 Dose: 1 cap Home Med (Alfuzosin Hcl [Uroxatral]) 10 mg PO DAILY [facility] Last Admin: 07/04/16 09:33 Dose: 10 mg Home Med (Dutasteride [Avodart]) 0.5 mg PO DAILY [facility] Last Admin: 07/04/16 09:31 Dose: 0.5 mg Home Med (Ranolazine [Ranexa]) 500 mg PO Q12 [facility] Last Admin: 07/04/16 21:31 Dose: 500 mg Insulin Detemir (Levemir) 12 units SC HS [facility] Last Admin: 07/04/16 21:31 Dose: 12 unit Levothyroxine Sodium (Synthroid) 88 mcg PO DAILY@0630 [facility] Last Admin: 07/05/16 06:54 Dose: 88 mcg Metoprolol Succinate (Toprol Xl) 100 mg PO DAILY [facility] Last Admin: 07/04/16 10:33 Dose: Not Given Multivitamins/Minerals (Therapeutic-M Tab) 1 tab PO DAILY [facility] Last Admin: 07/04/16 09:30 Dose: 1 tab Nitroglycerin (Nitrostat Sl Tab) 0.4 mg SL Q5M PRN PRN Reason: cp/dyspnea Repaglinide (Prandin) 4 mg PO TID [facility] Last Admin: 07/04/16 17:37 Dose: 4 mg Sevelamer Carbonate (Renvela) 0.8 gm PO 1130,1700 [facility] Last Admin: 07/04/16 17:37 Dose: 0.8 gm Sitagliptin Phosphate (Januvia) 25 mg PO DAILY [facility] Last Admin: 07/04/16 09:34 Dose: 25 mg - Labs Labs: 07/04/16 10:30 07/04/16 14:50 - Constitutional Appears: Well, Non-toxic, No Acute Distress - Head Exam Head Exam: ATRAUMATIC, NORMAL INSPECTION, NORMOCEPHALIC - Eye Exam Eye Exam: EOMI, Normal appearance, PERRL Pupil Exam: NORMAL ACCOMODATION, PERRL - ENT Exam ENT Exam: Mucous Membranes Moist, Normal Exam - Neck Exam Neck Exam: Full ROM, Normal Inspection. absent: Lymphadenopathy - Respiratory Exam Respiratory Exam: Clear to Ausculation Bilateral, NORMAL BREATHING PATTERN - Cardiovascular Exam Cardiovascular Exam: REGULAR RHYTHM, RRR, +S1, +S2. absent: Murmur - GI/Abdominal Exam GI & Abdominal Exam: Soft, Normal Bowel Sounds. absent: Tenderness - Extremities Exam Extremities Exam: Full ROM, Normal Capillary Refill, Normal Inspection, Pedal Edema. absent: Joint Swelling Additional comments: 1-2+ non pitting today - Back Exam Back Exam: NORMAL INSPECTION - Neurological Exam Neurological Exam: Alert, Awake, CN II-XII Intact, Normal Gait, Oriented x3 - Psychiatric Exam Psychiatric exam: Normal Affect, Normal Mood - Skin Skin Exam: Dry, Intact, Normal Color, Warm Assessment and Plan (1) Acute on chronic systolic and diastolic heart failure, NYHA class 2 Status: Acute (2) DM2 (diabetes mellitus, type 2) Status: Acute (3) DVT prophylaxis Status: Acute - Assessment and Plan (Free Text) Assessment: (1) Acute on chronic systolic and diastolic heart failure, NYHA class 2 Assessment and Plan: cardio, gentle diuresis echo tele incr dyspnea, ?? need for as valvular surgery [facility] transfer pending Status: Acute (2) DM2 (diabetes mellitus, type 2) Assessment and Plan: riss, fsbg, home meds Status: Acute (3) DVT prophylaxis Assessment and Plan: scd and aehose, lovenox Status: Acute 4-hyponatremia/hyperkalemia-mckenzie r/t ckd, nephro, kayexalate, adjust dm2 meds , further oders per nephnilesh, roosevelt bmp and urine tests, was on hypertonic saline. ?? dialysis [id number], ?? dialysis, pendign am labs.
[2016-07-05] MEDS: Ergocalciferol 50,000 Intl Units Cap PO SCH (09:18)
[2016-07-05] MEDS: Multivitamin With Minerals Tab PO SCH (09:18)
[2016-07-05] MEDS: Enoxaparin 30 mg Syringe SC SCH (09:19)
[2016-07-05] MEDS: Metoprolol Succinate 100 mg XL Tab PO SCH (09:20)
[2016-07-05] MEDS: Sevelamer Carb 0.8 gm/Packet PO SCH ×2 (11:37→16:53)
--- NOTE | 2016-07-05 11:56 | CP.PCM.PN ---
Subjective - Date & Time of Evaluation Date of Evaluation: 07/05/16 Time of Evaluation: 11:56 - Subjective Subjective: no events overnight early am some gross hematuria noted with marrero + Objective - Vital Signs/Intake and Output Vital Signs (last 24 hours): Temp Pulse Resp BP Pulse Ox 97.5 F L 85 18 115/64 100 07/05/16 07:54 07/05/16 09:20 07/05/16 07:54 07/05/16 09:20 07/05/16 07:54 Intake and Output: 07/05/16 07/05/16 06:59 18:59 Intake Total 480 Output Total 1950 Balance -1470 - Medications Medications: Current Medications Acetaminophen (Tylenol 325mg Tab) 650 mg PO Q4 PRN PRN Reason: Pain, Mild (1-3) Last Admin: 06/29/16 18:46 Dose: 650 mg Allopurinol (Zyloprim) 100 mg PO DAILY [facility] Last Admin: 07/05/16 09:19 Dose: 100 mg Aspirin (Ecotrin) 81 mg PO DAILY [facility] Last Admin: 07/05/16 09:18 Dose: 81 mg Atorvastatin Calcium (Lipitor) 40 mg PO DAILY [facility] Last Admin: 07/05/16 09:18 Dose: 40 mg Enoxaparin Sodium (Lovenox) 30 mg SC DAILY [facility] PRN Reason: Protocol Last Admin: 07/05/16 09:19 Dose: 30 mg Ergocalciferol (Drisdol 50,000 Intl Units Cap) 1 cap PO SAT [facility] Last Admin: 07/05/16 09:18 Dose: 1 cap Home Med (Alfuzosin Hcl [Uroxatral]) 10 mg PO DAILY [facility] Last Admin: 07/05/16 09:19 Dose: 10 mg Home Med (Dutasteride [Avodart]) 0.5 mg PO DAILY [facility] Last Admin: 07/05/16 09:19 Dose: 0.5 mg Home Med (Ranolazine [Ranexa]) 500 mg PO Q12 [facility] Last Admin: 07/05/16 09:19 Dose: 500 mg Insulin Detemir (Levemir) 12 units SC HS [facility] Last Admin: 07/04/16 21:31 Dose: 12 unit Levothyroxine Sodium (Synthroid) 88 mcg PO DAILY@0630 [facility] Last Admin: 07/05/16 06:54 Dose: 88 mcg Metoprolol Succinate (Toprol Xl) 100 mg PO DAILY [facility] Last Admin: 07/05/16 09:20 Dose: Not Given Multivitamins/Minerals (Therapeutic-M Tab) 1 tab PO DAILY [facility] Last Admin: 07/05/16 09:18 Dose: 1 tab Nitroglycerin (Nitrostat Sl Tab) 0.4 mg SL Q5M PRN PRN Reason: cp/dyspnea Repaglinide (Prandin) 4 mg PO TID [facility] Last Admin: 07/05/16 09:20 Dose: Not Given Sevelamer Carbonate (Renvela) 0.8 gm PO 1130,1700 [facility] Last Admin: 07/04/16 17:37 Dose: 0.8 gm Sitagliptin Phosphate (Januvia) 25 mg PO DAILY [facility] Last Admin: 07/05/16 09:20 Dose: Not Given - Labs Labs: 07/04/16 10:30 07/04/16 14:50 - Constitutional Appears: Well, Non-toxic, No Acute Distress - Head Exam Head Exam: NORMAL INSPECTION - Eye Exam Eye Exam: Normal appearance - ENT Exam ENT Exam: Mucous Membranes Moist - Respiratory Exam Respiratory Exam: NORMAL BREATHING PATTERN - Cardiovascular Exam Cardiovascular Exam: REGULAR RHYTHM - GI/Abdominal Exam GI & Abdominal Exam: Soft - Neurological Exam Neurological Exam: Awake, Oriented x3 - Psychiatric Exam Psychiatric exam: Flat Affect - Skin Skin Exam: Dry Assessment and Plan - Assessment and Plan (Free Text) Plan: nathalia/ckd/hyponatremia/chf/dm/htn cr stable diuresing well with lasix i have ordered a stat bmp for sodium and depending on levels will give another dose of samsca dm per primary team bp ok hematuria" can do renal and bladder ultrasound
[2016-07-05 12:26] LABS: POTASSIUM 4.7 MMOL/L (3.6-5.0)
--- NOTE | 2016-07-05 12:37 | CP.PCM.PN ---
Subjective - Date & Time of Evaluation Date of Evaluation: 07/05/16 Time of Evaluation: 12:30 - Subjective Subjective: patient is sitting in the chair. no dyspnea at present. labs reviewed. Objective - Vital Signs/Intake and Output Vital Signs (last 24 hours): Temp Pulse Resp BP Pulse Ox 97.5 F L 88 18 113/70 100 07/05/16 12:00 07/05/16 12:00 07/05/16 12:00 07/05/16 12:00 07/05/16 12:00 Intake and Output: 07/05/16 07/05/16 06:59 18:59 Intake Total 480 Output Total 1950 Balance -1470 - Medications Medications: Current Medications Acetaminophen (Tylenol 325mg Tab) 650 mg PO Q4 PRN PRN Reason: Pain, Mild (1-3) Last Admin: 06/29/16 18:46 Dose: 650 mg Allopurinol (Zyloprim) 100 mg PO DAILY [facility] Last Admin: 07/05/16 09:19 Dose: 100 mg Aspirin (Ecotrin) 81 mg PO DAILY [facility] Last Admin: 07/05/16 09:18 Dose: 81 mg Atorvastatin Calcium (Lipitor) 40 mg PO DAILY [facility] Last Admin: 07/05/16 09:18 Dose: 40 mg Ergocalciferol (Drisdol 50,000 Intl Units Cap) 1 cap PO SAT [facility] Last Admin: 07/05/16 09:18 Dose: 1 cap Home Med (Alfuzosin Hcl [Uroxatral]) 10 mg PO DAILY [facility] Last Admin: 07/05/16 09:19 Dose: 10 mg Home Med (Dutasteride [Avodart]) 0.5 mg PO DAILY [facility] Last Admin: 07/05/16 09:19 Dose: 0.5 mg Home Med (Ranolazine [Ranexa]) 500 mg PO Q12 [facility] Last Admin: 07/05/16 09:19 Dose: 500 mg Insulin Detemir (Levemir) 12 units SC HS [facility] Last Admin: 07/04/16 21:31 Dose: 12 unit Levothyroxine Sodium (Synthroid) 88 mcg PO DAILY@0630 [facility] Last Admin: 07/05/16 06:54 Dose: 88 mcg Metoprolol Succinate (Toprol Xl) 100 mg PO DAILY [facility] Last Admin: 07/05/16 09:20 Dose: Not Given Multivitamins/Minerals (Therapeutic-M Tab) 1 tab PO DAILY [facility] Last Admin: 07/05/16 09:18 Dose: 1 tab Nitroglycerin (Nitrostat Sl Tab) 0.4 mg SL Q5M PRN PRN Reason: cp/dyspnea Repaglinide (Prandin) 4 mg PO TID [facility] Last Admin: 07/05/16 09:20 Dose: Not Given Sevelamer Carbonate (Renvela) 0.8 gm PO 1130,1700 [facility] Last Admin: 07/04/16 17:37 Dose: 0.8 gm Sitagliptin Phosphate (Januvia) 25 mg PO DAILY [facility] Last Admin: 07/05/16 09:20 Dose: Not Given - Labs Labs: 07/04/16 10:30 07/05/16 11:50 - Constitutional Appears: Non-toxic - Head Exam Head Exam: NORMAL INSPECTION - Eye Exam Eye Exam: Normal appearance - ENT Exam ENT Exam: Mucous Membranes Moist - Neck Exam Neck Exam: Full ROM - Respiratory Exam Respiratory Exam: Decreased Breath Sounds - Cardiovascular Exam Cardiovascular Exam: REGULAR RHYTHM - GI/Abdominal Exam GI & Abdominal Exam: Normal Bowel Sounds - Rectal Exam Rectal Exam: Deferred - Extremities Exam Extremities Exam: Pedal Edema - Back Exam Back Exam: NORMAL INSPECTION - Neurological Exam Neurological Exam: Alert - Psychiatric Exam Psychiatric exam: Normal Affect - Skin Skin Exam: Normal Color Assessment and Plan (1) Acute on chronic systolic and diastolic heart failure, NYHA class 2 Assessment & Plan: improvement with diuresis Status: Acute (2) CAD (coronary artery disease) Assessment & Plan: s/p CABG. will need evaluation of graft status. risk of contrast induced nephropathy discussed with the patient. Status: Acute (3) DM2 (diabetes mellitus, type 2) Status: Acute (4) Aortic stenosis Assessment & Plan: family wishes to go to [place] for evalaution of aortic valve. Status: Acute (5) Hyponatremia Status: Acute
[2016-07-05] MEDS ORDERED: Tolvaptan 15 MG TAB PO ONE (14:00)
[2016-07-05] MEDS: Insulin Detemir 100 Units/ml Inj SC SCH (22:10)
[2016-07-06] MEDS: Levothyroxine 88 MCG TAB PO SCH (06:34)
[2016-07-06 08:52] LABS: BLOOD UREA NITROGEN 46 mg/dl (9-20); CALCIUM 8.4 mg/dL (8.4-10.2); CARBON DIOXIDE 31 mmol/L (22-30); CHLORIDE 88 mmol/L (98-107); GFR AFRICAN-AMERICAN > 60; GLUCOSE,RANDOM 83 mg/dL (75-110); SODIUM 125 mmol/l (132-148)
[2016-07-06] MEDS: Metoprolol Succinate 100 mg XL Tab PO SCH ×2 (09:45→09:46)
[2016-07-06] MEDS: Multivitamin With Minerals Tab PO SCH (09:46)
--- NOTE | 2016-07-06 10:04 | CP.PCM.PN ---
Subjective - Date & Time of Evaluation Date of Evaluation: 07/06/16 Time of Evaluation: 09:55 - Subjective Subjective: patient has less dyspnea Objective - Vital Signs/Intake and Output Vital Signs (last 24 hours): Temp Pulse Resp BP Pulse Ox 98.1 F 91 H 18 129/70 99 07/06/16 05:08 07/06/16 05:08 07/06/16 05:08 07/06/16 05:08 07/06/16 05:08 Intake and Output: 07/06/16 07/06/16 06:59 18:59 Intake Total 850 Output Total 1800 Balance -950 - Medications Medications: Current Medications Acetaminophen (Tylenol 325mg Tab) 650 mg PO Q4 PRN PRN Reason: Pain, Mild (1-3) Last Admin: 06/29/16 18:46 Dose: 650 mg Allopurinol (Zyloprim) 100 mg PO DAILY [facility] Last Admin: 07/06/16 09:46 Dose: 100 mg Aspirin (Ecotrin) 81 mg PO DAILY [facility] Last Admin: 07/06/16 09:44 Dose: 81 mg Atorvastatin Calcium (Lipitor) 40 mg PO DAILY [facility] Last Admin: 07/06/16 09:45 Dose: 40 mg Ergocalciferol (Drisdol 50,000 Intl Units Cap) 1 cap PO SAT [facility] Last Admin: 07/05/16 09:18 Dose: 1 cap Home Med (Alfuzosin Hcl [Uroxatral]) 10 mg PO DAILY [facility] Last Admin: 07/06/16 09:44 Dose: 10 mg Home Med (Dutasteride [Avodart]) 0.5 mg PO DAILY [facility] Last Admin: 07/06/16 09:44 Dose: 0.5 mg Home Med (Ranolazine [Ranexa]) 500 mg PO Q12 [facility] Last Admin: 07/06/16 09:44 Dose: 500 mg Insulin Detemir (Levemir) 12 units SC HS [facility] Last Admin: 07/05/16 22:10 Dose: 12 unit Levothyroxine Sodium (Synthroid) 88 mcg PO DAILY@0630 [facility] Last Admin: 07/06/16 06:34 Dose: 88 mcg Metoprolol Succinate (Toprol Xl) 100 mg PO DAILY [facility] Last Admin: 07/06/16 09:46 Dose: Not Given Multivitamins/Minerals (Therapeutic-M Tab) 1 tab PO DAILY [facility] Last Admin: 07/06/16 09:46 Dose: 1 tab Nitroglycerin (Nitrostat Sl Tab) 0.4 mg SL Q5M PRN PRN Reason: cp/dyspnea Repaglinide (Prandin) 4 mg PO TID [facility] Last Admin: 07/06/16 09:45 Dose: Not Given Sevelamer Carbonate (Renvela) 0.8 gm PO 1130,1700 [facility] Last Admin: 07/05/16 16:53 Dose: 0.8 gm Sitagliptin Phosphate (Januvia) 25 mg PO DAILY [facility] Last Admin: 07/06/16 09:44 Dose: 25 mg - Labs Labs: 07/04/16 10:30 07/06/16 06:00 - Constitutional Appears: Non-toxic - Head Exam Head Exam: NORMAL INSPECTION - Eye Exam Eye Exam: Normal appearance - ENT Exam ENT Exam: Mucous Membranes Moist - Neck Exam Neck Exam: Full ROM - Respiratory Exam Respiratory Exam: Decreased Breath Sounds - Cardiovascular Exam Cardiovascular Exam: REGULAR RHYTHM, Murmur - GI/Abdominal Exam GI & Abdominal Exam: Normal Bowel Sounds - Rectal Exam Rectal Exam: Deferred - Extremities Exam Extremities Exam: absent: Pedal Edema - Back Exam Back Exam: NORMAL INSPECTION - Neurological Exam Neurological Exam: Alert - Psychiatric Exam Psychiatric exam: Normal Affect - Skin Skin Exam: Normal Color Assessment and Plan (1) Acute on chronic systolic and diastolic heart failure, NYHA class 2 Assessment & Plan: improving on current therapy Status: Acute (2) CAD (coronary artery disease) Assessment & Plan: s/p CABG. no current angina Status: Acute (3) DM2 (diabetes mellitus, type 2) Assessment & Plan: increase blood sugar control Status: Acute (4) Aortic stenosis Assessment & Plan: family wishes to pursue further workup at [place]. Status: Acute (5) Hyponatremia Assessment & Plan: improving Status: Acute
[2016-07-06 10:06] VITALS: O2SAT 100
--- NOTE | 2016-07-06 10:56 | CP.PCM.PN ---
Subjective - Date & Time of Evaluation Date of Evaluation: 07/06/16 Time of Evaluation: 10:55 - Subjective Subjective: no distress/complaints. for xfer to [facility] today. bw noted. hematuria noted yesterday, us pending final reports, to be followed in [facility]. bw reviewed. na 125, bun 42, cr normal. Objective - Vital Signs/Intake and Output Vital Signs (last 24 hours): Temp Pulse Resp BP Pulse Ox 97.6 F 93 H 20 109/63 100 07/06/16 09:00 07/06/16 09:00 07/06/16 09:00 07/06/16 09:00 07/06/16 09:00 Intake and Output: 07/06/16 07/06/16 06:59 18:59 Intake Total 850 Output Total 1800 Balance -950 - Medications Medications: Current Medications Acetaminophen (Tylenol 325mg Tab) 650 mg PO Q4 PRN PRN Reason: Pain, Mild (1-3) Last Admin: 06/29/16 18:46 Dose: 650 mg Allopurinol (Zyloprim) 100 mg PO DAILY [facility] Last Admin: 07/06/16 09:46 Dose: 100 mg Aspirin (Ecotrin) 81 mg PO DAILY [facility] Last Admin: 07/06/16 09:44 Dose: 81 mg Atorvastatin Calcium (Lipitor) 40 mg PO DAILY [facility] Last Admin: 07/06/16 09:45 Dose: 40 mg Ergocalciferol (Drisdol 50,000 Intl Units Cap) 1 cap PO SAT [facility] Last Admin: 07/05/16 09:18 Dose: 1 cap Home Med (Alfuzosin Hcl [Uroxatral]) 10 mg PO DAILY [facility] Last Admin: 07/06/16 09:44 Dose: 10 mg Home Med (Dutasteride [Avodart]) 0.5 mg PO DAILY [facility] Last Admin: 07/06/16 09:44 Dose: 0.5 mg Home Med (Ranolazine [Ranexa]) 500 mg PO Q12 [facility] Last Admin: 07/06/16 09:44 Dose: 500 mg Insulin Detemir (Levemir) 12 units SC HS [facility] Last Admin: 07/05/16 22:10 Dose: 12 unit Levothyroxine Sodium (Synthroid) 88 mcg PO DAILY@0630 [facility] Last Admin: 07/06/16 06:34 Dose: 88 mcg Metoprolol Succinate (Toprol Xl) 100 mg PO DAILY [facility] Last Admin: 07/06/16 09:46 Dose: Not Given Multivitamins/Minerals (Therapeutic-M Tab) 1 tab PO DAILY [facility] Last Admin: 07/06/16 09:46 Dose: 1 tab Nitroglycerin (Nitrostat Sl Tab) 0.4 mg SL Q5M PRN PRN Reason: cp/dyspnea Repaglinide (Prandin) 4 mg PO TID [facility] Last Admin: 07/06/16 09:45 Dose: Not Given Sevelamer Carbonate (Renvela) 0.8 gm PO 1130,1700 [facility] Last Admin: 07/05/16 16:53 Dose: 0.8 gm Sitagliptin Phosphate (Januvia) 25 mg PO DAILY [facility] Last Admin: 07/06/16 09:44 Dose: 25 mg - Labs Labs: 07/04/16 10:30 07/06/16 06:00 - Constitutional Appears: Well, Non-toxic, No Acute Distress - Head Exam Head Exam: ATRAUMATIC, NORMAL INSPECTION, NORMOCEPHALIC - Eye Exam Eye Exam: EOMI, Normal appearance, PERRL Pupil Exam: NORMAL ACCOMODATION, PERRL - ENT Exam ENT Exam: Mucous Membranes Moist, Normal Exam - Neck Exam Neck Exam: Full ROM, Normal Inspection. absent: Lymphadenopathy - Respiratory Exam Respiratory Exam: Clear to Ausculation Bilateral, NORMAL BREATHING PATTERN - Cardiovascular Exam Cardiovascular Exam: REGULAR RHYTHM, +S1, +S2. absent: Murmur - GI/Abdominal Exam GI & Abdominal Exam: Soft, Normal Bowel Sounds. absent: Tenderness - Extremities Exam Extremities Exam: Full ROM, Normal Capillary Refill, Normal Inspection, Pedal Edema. absent: Joint Swelling - Back Exam Back Exam: NORMAL INSPECTION - Neurological Exam Neurological Exam: Alert, Awake, CN II-XII Intact, Normal Gait, Oriented x3 - Psychiatric Exam Psychiatric exam: Normal Affect, Normal Mood - Skin Skin Exam: Dry, Intact, Normal Color, Warm Assessment and Plan (1) Acute on chronic systolic and diastolic heart failure, NYHA class 2 Status: Acute (2) DM2 (diabetes mellitus, type 2) Status: Acute (3) DVT prophylaxis Status: Acute - Assessment and Plan (Free Text) Assessment: cont current rx, all bw nad imaging noted. all consults appriciated. bed from [facility] rec'd. for xfer w/ acls care today
[2016-07-06] MEDS ORDERED: Tolvaptan 15 MG TAB PO ONE (11:23)
--- NOTE | 2016-07-06 11:40 | CP.PCM.PN ---
Subjective - Date & Time of Evaluation Date of Evaluation: 07/06/16 Time of Evaluation: 11:38 - Subjective Subjective: hematuria resolved sob better Objective - Vital Signs/Intake and Output Vital Signs (last 24 hours): Temp Pulse Resp BP Pulse Ox 97.6 F 93 H 20 109/63 100 07/06/16 09:00 07/06/16 09:00 07/06/16 09:00 07/06/16 09:00 07/06/16 09:00 Intake and Output: 07/06/16 07/06/16 06:59 18:59 Intake Total 850 Output Total 1800 Balance -950 - Medications Medications: Current Medications Acetaminophen (Tylenol 325mg Tab) 650 mg PO Q4 PRN PRN Reason: Pain, Mild (1-3) Last Admin: 06/29/16 18:46 Dose: 650 mg Allopurinol (Zyloprim) 100 mg PO DAILY [facility] Last Admin: 07/06/16 09:46 Dose: 100 mg Aspirin (Ecotrin) 81 mg PO DAILY [facility] Last Admin: 07/06/16 09:44 Dose: 81 mg Atorvastatin Calcium (Lipitor) 40 mg PO DAILY [facility] Last Admin: 07/06/16 09:45 Dose: 40 mg Ergocalciferol (Drisdol 50,000 Intl Units Cap) 1 cap PO SAT [facility] Last Admin: 07/05/16 09:18 Dose: 1 cap Home Med (Alfuzosin Hcl [Uroxatral]) 10 mg PO DAILY [facility] Last Admin: 07/06/16 09:44 Dose: 10 mg Home Med (Dutasteride [Avodart]) 0.5 mg PO DAILY [facility] Last Admin: 07/06/16 09:44 Dose: 0.5 mg Home Med (Ranolazine [Ranexa]) 500 mg PO Q12 [facility] Last Admin: 07/06/16 09:44 Dose: 500 mg Insulin Detemir (Levemir) 12 units SC HS [facility] Last Admin: 07/05/16 22:10 Dose: 12 unit Levothyroxine Sodium (Synthroid) 88 mcg PO DAILY@0630 [facility] Last Admin: 07/06/16 06:34 Dose: 88 mcg Metoprolol Succinate (Toprol Xl) 100 mg PO DAILY [facility] Last Admin: 07/06/16 09:46 Dose: Not Given Multivitamins/Minerals (Therapeutic-M Tab) 1 tab PO DAILY [facility] Last Admin: 07/06/16 09:46 Dose: 1 tab Nitroglycerin (Nitrostat Sl Tab) 0.4 mg SL Q5M PRN PRN Reason: cp/dyspnea Repaglinide (Prandin) 4 mg PO TID [facility] Last Admin: 07/06/16 09:45 Dose: Not Given Sevelamer Carbonate (Renvela) 0.8 gm PO 1130,1700 [facility] Last Admin: 07/05/16 16:53 Dose: 0.8 gm Sitagliptin Phosphate (Januvia) 25 mg PO DAILY [facility] Last Admin: 07/06/16 09:44 Dose: 25 mg - Labs Labs: 07/04/16 10:30 07/06/16 06:00 - Constitutional Appears: Non-toxic, No Acute Distress - Head Exam Head Exam: NORMAL INSPECTION - Eye Exam Eye Exam: Normal appearance - ENT Exam ENT Exam: Mucous Membranes Moist - Neck Exam Neck Exam: Normal Inspection - Respiratory Exam Respiratory Exam: NORMAL BREATHING PATTERN - Cardiovascular Exam Cardiovascular Exam: REGULAR RHYTHM, +S1, +S2 - GI/Abdominal Exam GI & Abdominal Exam: Soft - Extremities Exam Extremities Exam: Normal Inspection - Neurological Exam Neurological Exam: Alert, Awake - Psychiatric Exam Psychiatric exam: Flat Affect - Skin Skin Exam: Dry, Warm Assessment and Plan - Assessment and Plan (Free Text) Plan: nathalia/ckd/hyponatremia/chf/dm/htn cr stable chf stable i have given another dose of samsca dm per primary team bp ok hematuria resolved, likely marrero trauma
[2016-07-06] MEDS: Sevelamer Carb 0.8 gm/Packet PO SCH (12:15)
[2016-07-06 16:31] VITALS: BP 114/65; PULSE 92; RESP 18; TEMP 97.9
--- NOTE | 2016-07-06 16:50 | US ---
PROCEDURE: HISTORY: hematuria COMPARISON: TECHNIQUE: FINDINGS: The right and left kidney measure 11.6 and 11.2 centimeters respectively. There is no hydronephrosis or renal calculus. There is a roughly 7 centimeter right lower pole renal cyst. IMPRESSION: As above.
--- NOTE | 2016-07-06 16:51 | US ---
PROCEDURE: HISTORY: hematuria COMPARISON: TECHNIQUE: FINDINGS: The bladder is not visualized. IMPRESSION: The bladder is empty and not visualized.
--- NOTE | 2016-07-06 20:51 | CP.PCM.DIS ---
Provider - Provider Date of Admission: 06/26/16 09:18 Attending physician: Haley Blackwell MD Time Spent in preparation of Discharge (in minutes): 25 Diagnosis - Discharge Diagnosis (1) Acute on chronic systolic and diastolic heart failure, NYHA class 2 Status: Acute (2) DM2 (diabetes mellitus, type 2) Status: Acute (3) DVT prophylaxis Status: Acute Hospital Course - Lab Results Lab Results: Most Recent Lab Values WBC 8.5 K/uL (4.8-10.8) 07/04/16 10:30 RBC 3.08 Mil/uL (4.40-5.90) L 07/04/16 10:30 Hgb 9.5 g/dL (12.0-18.0) L 07/04/16 10:30 Hct 28.1 % (35.0-51.0) L 07/04/16 10:30 MCV 91.4 fl (80.0-94.0) 07/04/16 10:30 MCH 31.0 pg (27.0-31.0) 07/04/16 10:30 MCHC 33.9 g/dL (33.0-37.0) 07/04/16 10:30 RDW 13.2 % (11.5-14.5) 07/04/16 10:30 Plt Count 231 K/uL (130-400) 07/04/16 10:30 MPV 8.0 fl (7.2-11.7) 07/04/16 10:30 Neut % (Auto) 80.6 % (50.0-75.0) H 07/04/16 10:30 Lymph % (Auto) 6.7 % (20.0-40.0) L 07/04/16 10:30 [place] % (Auto) 11.7 % (0.0-10.0) H 07/04/16 10:30 Eos % (Auto) 0.4 % (0.0-4.0) 07/04/16 10:30 Baso % (Auto) 0.6 % (0.0-2.0) 07/04/16 10:30 Neut # 6.9 K/uL (1.8-7.0) 07/04/16 10:30 Lymph # 0.6 K/uL (1.0-4.3) L 07/04/16 10:30 [place] # 1.0 K/uL (0.0-0.8) H 07/04/16 10:30 Eos # 0.0 K/uL (0.0-0.7) 07/04/16 10:30 Baso # 0.0 K/uL (0.0-0.2) 07/04/16 10:30 Neutrophils % (Manual) 77 % (42-75) H 07/03/16 05:40 Lymphocytes % (Manual) 5 % (20-50) L 07/03/16 05:40 Monocytes % (Manual) 17 % (0-10) H 07/03/16 05:40 Eosinophils % (Manual) 1 % (0-7) 07/03/16 05:40 Platelet Estimate Normal (NORMAL) 07/03/16 05:40 Large Platelets Present 07/03/16 05:40 RBC Morphology Normal (NORMAL) 06/26/16 07:46 Poikilocytosis (manual Slight 07/03/16 05:40 Anisocytosis (manual) Slight 07/03/16 05:40 Ovalocytes Slight 07/03/16 05:40 Sodium 125 mmol/l (132-148) L 07/06/16 06:00 Potassium 4.0 MMOL/L (3.6-5.0) 07/06/16 06:00 Chloride 88 mmol/L (98-107) L 07/06/16 06:00 Carbon Dioxide 31 mmol/L (22-30) H 07/06/16 06:00 Anion Gap 10 (10-20) 07/06/16 06:00 BUN 46 mg/dl (9-20) H 07/06/16 06:00 Creatinine 1.2 mg/dL (0.8-1.5) 07/06/16 06:00 Est GFR ( Amer) > 60 07/06/16 06:00 Est GFR (Non-Af Amer) 57 07/06/16 06:00 POC Glucose (mg/dL) 194 mg/dL (65-110) H 07/06/16 12:04 Random Glucose 83 mg/dL (75-110) 07/06/16 06:00 Serum Osmolality 270 mosm/kg (272-300) L 06/30/16 06:00 Uric Acid 5.7 mg/Dl (3.5-8.5) 06/30/16 06:00 Calcium 8.4 mg/dL (8.4-10.2) 07/06/16 06:00 Phosphorus 5.0 mg/dl (2.5-4.5) H 07/02/16 05:35 Total Bilirubin 0.6 mg/dl (0.2-1.3) 07/03/16 05:40 AST 43 U/L (17-59) 07/03/16 05:40 ALT 46 U/L (21-72) 07/03/16 05:40 Alkaline Phosphatase 99 U/L (38-126) 07/03/16 05:40 Troponin I 0.0590 ng/mL (0.00-0.120) 06/27/16 05:35 NT-Pro-B Natriuret Pep 3990 pg/ml (0-900) H 06/27/16 05:35 Total Protein 6.8 G/DL (6.3-8.2) 07/03/16 05:40 Albumin 3.6 g/dL (3.5-5.0) 07/03/16 05:40 Globulin 3.2 gm/dL (2.2-3.9) 07/03/16 05:40 Albumin/Globulin Ratio 1.1 (1.0-2.1) 07/03/16 05:40 Prostate Specific Ag < 0.064 ng/ML (0.00-4.0) 06/30/16 06:00 Urine Color Rachel (YELLOW) 07/02/16 09:30 Urine Clarity Cloudy (Clear) 07/02/16 09:30 Urine pH 5.0 (5.0-8.0) 07/02/16 09:30 Ur Specific [place] 1.017 (1.003-1.030) 07/02/16 09:30 Urine Protein 100 mg/dL (NEGATIVE) 07/02/16 09:30 Urine Glucose (UA) Neg mg/dL (Normal) 07/02/16 09:30 Urine Ketones Negative mg/dL (NEGATIVE) 07/02/16 09:30 Urine Blood Large (NEGATIVE) 07/02/16 09:30 Urine Nitrate Negative (NEGATIVE) 07/02/16 09:30 Urine Bilirubin Negative (NEGATIVE) 07/02/16 09:30 Urine Urobilinogen 0.2-1.0 mg/dL (0.2-1.0) 07/02/16 09:30 Ur Leukocyte Esterase Neg Patricia/uL (Negative) 07/02/16 09:30 Urine RBC (Auto) 269 /hpf (0-3) H 07/02/16 09:30 Urine Microscopic WBC 13 /hpf (0-5) H 07/02/16 09:30 Ur Squamous Epith Cells 2 /hpf (0-5) 07/02/16 09:30 Amorphous Sediment Occ /ul (<OCC) H 07/02/16 09:30 Urine Bacteria Occ (<OCC) H 07/02/16 09:30 Hyaline Casts 0-2 /hpf (0-2) 07/02/16 09:30 Urine Osmolality 292 mosm/kg (300-1000) L 07/01/16 09:31 Ur Random Creatinine 147.9 mg/dL 06/30/16 10:41 U Random Total Protein 651 mg/L (50-250) H 07/03/16 09:13 Ur Random Sodium 13 mmol/L 07/01/16 09:31 Urine Creatinine 130 mg/dL (20-370) 07/02/16 09:30 Urine Microalbumin 60.6 mg/dL 07/02/16 09:30 Microalb/Creat Ratio 466 (<30) H 07/02/16 09:30 Ur Total Protein 24 Hr 814 mg/24 h (<150) H 07/03/16 09:13 Urine Chloride 17 mmol/L (32-290) L 06/30/16 10:41 Influenza Typ A,B (EIA) Negative for flu a/b (NEGATIVE) 06/26/16 08:15 Discharge Exam - Head Exam Head Exam: ATRAUMATIC, NORMAL INSPECTION, NORMOCEPHALIC Discharge Plan - Discharge Medications Prescriptions: Nitroglycerin [Nitromist] 4.1 gm TL Q5M #1 spray SITagliptin [Januvia] 25 mg PO DAILY #30 tab - Follow Up Plan Condition: FAIR Disposition: Trans to Other Acute Care Hosp Instructions: Heart Failure (DC), Acute Kidney Injury (DC) Additional Instructions: final dx-ckd stage 4-5, severe [facility]
== END 2016-07-06 17:14 | disposition short-term general hospital (02) | DRG 291 ==
LOC: H.ER 06:55 → H.ERHOLD 09:18 → H.TEL 11:29
PROVIDERS: ADMIT Family Medicine; ATTEND Family Medicine
DX: I13.0 Hypertensive heart and chronic kidney disease with heart failure and stage 1 through stage 4 chronic kidney disease, or unspecified chronic kidney disease (principal); I50.43 Acute on chronic combined systolic (congestive) and diastolic (congestive) heart failure; N17.9 Acute kidney failure, unspecified; N18.4 Chronic kidney disease, stage 4 (severe); E87.1 Hypo-osmolality and hyponatremia; E87.5 Hyperkalemia; E11.22 Type 2 diabetes mellitus with diabetic chronic kidney disease; I25.5 Ischemic cardiomyopathy; R31.0 Gross hematuria; I25.10 Atherosclerotic heart disease of native coronary artery without angina pectoris; I35.0 Nonrheumatic aortic (valve) stenosis; M17.12 Unilateral primary osteoarthritis, left knee; E03.9 Hypothyroidism, unspecified; E78.5 Hyperlipidemia, unspecified; D64.9 Anemia, unspecified; N28.1 Cyst of kidney, acquired; N40.0 Benign prostatic hyperplasia without lower urinary tract symptoms; J44.9 Chronic obstructive pulmonary disease, unspecified; Z91.14 Patient's other noncompliance with medication regimen; Z95.1 Presence of aortocoronary bypass graft; Z95.810 Presence of automatic (implantable) cardiac defibrillator; Z86.11 Personal history of tuberculosis; Z79.82 Long term (current) use of aspirin